=== PATIENT | female | born 1930 | race Two or more races ===

== ENCOUNTER 2016-05-26 15:52 | Emergency (ER) | payer SELFPAY ==
[~2016-05-26] VITALS: Wt 70.0 kg
== END 2016-05-26 20:30 | disposition left against medical advice (07) ==
LOC: E/R 15:52
DX: Z53.21 Procedure and treatment not carried out due to patient leaving prior to being seen by health care provider (principal)

== ENCOUNTER 2016-06-26 16:45 | Inpatient (IN) | payer BC ==
[~2016-06-26] VITALS: Ht 157.5 cm; Wt 72.1 kg
[2016-06-26 19:53] VITALS: BP 181/84; RESP 17
[2016-06-26 20:21] VITALS: PULSE 83
[2016-06-26 20:30] VITALS: Ht 157.5 cm; Wt 72.1 kg
[2016-06-26] MEDS ORDERED: FOLI-49 PO (21:27)
[2016-06-26] MEDS ORDERED: LOSA25TA2 PO (21:27)
[2016-06-26] MEDS ORDERED: ACET500C5 PO (21:27)
[2016-06-26] MEDS ORDERED: PANT40TA3 PO (21:27)
[2016-06-26] MEDS ORDERED: FURO40TA4 PO (21:27)
[2016-06-26] MEDS ORDERED: INSU100C SQ (21:27)
[2016-06-26] MEDS ORDERED: HYDR-906 PO (21:27)
[2016-06-26] MEDS ORDERED: BISM262O PO (21:27)
[2016-06-26] MEDS ORDERED: TEMA15CA PO (21:27)
[2016-06-26] MEDS ORDERED: LANT3I SC (21:27)
[2016-06-26] MEDS ORDERED: CARV6.25 PO (21:27)
[2016-06-26] MEDS ORDERED: MAGN400O4 PO (21:27)
[2016-06-26] MEDS ORDERED: LEVO75TA5 PO (21:27)
[2016-06-26] MEDS ORDERED: SITA100T8 PO (21:27)
[2016-06-26] MEDS ORDERED: ATOR40TA68 PO (21:27)
[2016-06-26] MEDS ORDERED: HYDR-3670 PO (21:27)
[2016-06-26] MEDS ORDERED: MAG355OR15 PO (21:27)
[2016-06-26] MEDS ORDERED: BISM262O23 PO (21:27)
[2016-06-26] MEDS ORDERED: ASPI81TA3 PO (21:27)
[2016-06-26] MEDS ORDERED: IBUP200C11 PO (21:27)
[2016-06-26] MEDS ORDERED: BISMUTH SUBSALICYLATE 120 ML BTL PO PRN (22:30)
[2016-06-26] MEDS ORDERED: AL HYDROX/MG HYDROX/SIMETH 30 ML CUP PO PRN (22:30)
[2016-06-26] MEDS ORDERED: BISMUTH SUBSALICYLATE 240 ML BTL PO PRN (22:30)
[2016-06-26] MEDS ORDERED: HYDROCODONE/APAP (5/325) TAB PO PRN (22:30)
[2016-06-26] MEDS ORDERED: IBUPROFEN 200 MG TAB PO PRN (22:30)
[2016-06-26] MEDS ORDERED: NITROGLYCERIN 0.1 MG/HR PATCH TRANSDERM SCH (22:30)
[2016-06-26] MEDS ORDERED: MAGNESIUM HYDROXIDE 30ML CUP PO PRN (22:30)
[2016-06-26] MEDS ORDERED: ACETAMINOPHEN 500 MG TAB PO PRN (22:30)
[2016-06-26] MEDS ORDERED: ZOLPIDEM 5 MG TAB PO PRN (23:30)
[2016-06-26] MEDS ORDERED: DEXTROSE 50% 50 ML SYRINGE IV PRN ×2 (23:30)
[2016-06-26] MEDS ORDERED: GLUCOSE GEL 15 GRAM TUBE PO PRN ×2 (23:30)
[2016-06-26] MEDS ORDERED: GLUCOSE GEL 15 GRAM TUBE BUCCAL PRN (23:30)
[2016-06-26] MEDS ORDERED: GLUCAGON 1 MG INJ IM PRN (23:30)
[2016-06-26 23:31] LABS: BASOPHILS % 0.8 % (0.0-2.0); EOSINOPHILS # 0.4 10^3/ul (0.0-0.5); EOSINOPHILS % 7.5 % (0.0-7.0); HEMATOCRIT 30.2 % (37.0-47.0); LYMPHOCYTES # 0.8 10^3/ul (0.8-2.9); LYMPHOCYTES % 14.1 % (15.0-51.0); MEAN CORPUSCULAR HEMOGLOBIN 27.9 pg (29.0-33.0); MEAN CORPUSCULAR HGB CONC 33.2 g/dl (32.0-37.0); MEAN CORPUSCULAR VOLUME 84.2 fl (82.0-101.0); MEAN PLATELET VOLUME 7.8 fl (7.4-10.4); MONOCYTE # 0.6 10^3/ul (0.3-0.9); MONOCYTES % 9.5 % (0.0-11.0); NEUTROPHILS % 68.1 % (39.0-77.0); PLATELET COUNT 149 10^3/UL (140-440); RED BLOOD COUNT 3.58 10^6/ul (4.20-5.40); RED CELL DISTRIBUTION WIDTH 15.9 % (11.5-14.5); UNCORRECTED WBC 5.9 10^3/ul (4.8-10.8); WHITE BLOOD COUNT 5.9 10^3/ul (4.8-10.8)
[2016-06-26 23:33] VITALS: BP 175/69; RESP 16
[2016-06-26 23:34] LABS: CONDITION 1; LH ANALYZER COMMENTS 1
[2016-06-26 23:40] LABS: POTASSIUM 5.3 mmol/L (3.5-5.1)
[2016-06-26 23:43] LABS: CALCIUM 8.8 mg/dl (8.4-10.2); CREATININE 2.07 mg/dl (0.44-1.00)
[2016-06-26 23:56] LABS: TROPONIN-I 0.033 ng/ml (0.00-0.12)
[2016-06-27] VITALS (12 sets, daily range): BP systolic 130–157; BP diastolic 59–75; PULSE 59–65; RESP 16–19
[2016-06-27] MEDS: NITROGLYCERIN 2% 1 GM OINT PKT TD SCH ×3 (00:54→21:02)
[2016-06-27] MEDS: ACCUCHECK XX SCH (02:00)
[2016-06-27] MEDS ORDERED: NA POLYST SULFON 15 GM/60 ML BTL PO ONE (06:00)
[2016-06-27] MEDS: PANTOPRAZOLE (EC) 40 MG TAB PO SCH (06:20)
[2016-06-27] MEDS: FUROSEMIDE 40 MG INJ IV SCH (06:20)
[2016-06-27] MEDS: LEVOTHYROXINE 75 MCG TAB PO SCH (06:21)
[2016-06-27] MEDS: FOLIC ACID 1 MG TAB PO SCH (08:48)
[2016-06-27] MEDS: LOSARTAN 25 MG TAB PO SCH (08:48)
[2016-06-27] MEDS: ASPIRIN 325 MG TAB PO SCH (08:49)
[2016-06-27] MEDS: INSULIN ASPART [NOVOLOG] 3 ML PEN SC SCH ×4 (08:57→21:07)
--- NOTE | 2016-06-27 12:18 | CONS ---
Date/Time of Note Date/Time of Note DATE: 06/27/16 TIME: 12:13 Assessment/Plan Assessment/Plan Additional Assessment/Plan Acute decompensated congestive heart failure Atrial fibrillation, rate controlled Chronic kidney disease Hypertension Diabetes Dyslipidemia History of [employer] pacemaker Dementia -Patient with evidence of volume overload and acute decompensated congestive heart failure. Would check checks x-ray, echocardiogram pending, IV diuretic therapy with close monitoring of renal function. Stop ARB given elevated potassium and renal dysfunction. On review of office notes, patient was considered a fall risk and not on anticoagulation. Consultation Date/Type/Reason Admit Date/Time Jun 26, 2016 at 18:58 Type of Consultation: cv Reason for Consultation Congestive heart failure Hx of Present Illness This is an 86-year-old female with past medical history of atrial fibrillation, pacemaker, congestive heart failure, dementia who presented to outside facility with symptoms of progressive worsening shortness of breath. Patient denies chest pain, dizziness or lightheadedness. Because of insurance reasons, she was transferred to our facility for further evaluation and care. Shortness of breath is currently improved but still present. She denies any chest pain, palpitations or dizziness. She denies any abdominal pain. She does complain of lower extremity swelling. History obtained from the patient via screening representative, medical records and office notes. 12 point review of systems was performed with all pertinent positives and negatives mentioned above and all else is negative Past Medical History Atrial fibrillation CKD Medical History: congestive heart failure, high cholesterol, hypertension Past Surgical History Pacemaker Family History Significant Family History: no pertinent family hx Social History Smoking Status: Never smoker Other Social History Lives with family Exam/Review of Systems Vital Signs Vitals Vital Signs Date Time Temp Pulse Resp B/P Pulse Ox O2 Delivery O2 Flow Rate FiO2 06/27/16 12:11 63 06/27/16 11:55 98.3 19 149/68 100 06/27/16 08:00 Nasal Cannula 06/26/16 23:00 3.0 Intake and Output 06/26/16 06/26/16 06/27/16 15:00 23:00 07:00 Intake Total 250 ml Balance 250 ml Exam Follows commands, no apparent distress Constitutional: alert Head: normocephalic Neck: supple Respiratory: other (Coarse breath sounds bilaterally with minimal scattered crackles, more so at the bases, no wheezing) Cardiovascular: irregular rhythm, other (S1-S2 heard) Gastrointestinal: bowel sounds, non-tender, other (No guarding), soft Extremities: edema Results Result Diagram: 06/26/16 2321 06/26/16 2321 Results 24 hrs Laboratory Tests Test 06/26/16 21:52 06/26/16 23:21 06/27/16 05:51 06/27/16 08:05 Bedside Glucose 261 H 247 H Anion Gap 19 H Basophils # 0.0 Basophils % 0.8 Blood Morphology Comment Blood Urea Nitrogen 75 H Calcium Level 8.8 Carbon Dioxide Level 25 Chloride Level 100 Creatinine 2.07 H Eosinophils # 0.4 Eosinophils % 7.5 H Glucose Level 244 H Hematocrit 30.2 L Hemoglobin 10.0 L Lymphocytes # 0.8 Lymphocytes % 14.1 L Mean Corpuscular Hemoglobin 27.9 L Mean Corpuscular Hemoglobin Concent 33.2 Mean Corpuscular Volume 84.2 Mean Platelet Volume 7.8 Monocytes # 0.6 Monocytes % 9.5 Neutrophils # 4.0 Neutrophils % 68.1 Nucleated Red Blood Cells # 0.0 Nucleated Red Blood Cells % 0.0 Platelet Count 149 Potassium Level 5.3 H Red Blood Count 3.58 L Red Cell Distribution Width 15.9 H Sodium Level 139 Troponin I 0.033 0.022 White Blood Count 5.9 Test 06/27/16 11:47 Bedside Glucose 193 Medications Medications Current Medications Acetaminophen (Tylenol Tab) 500 mg Q4H PRN PO PAIN AND OR ELEVATED TEMP; Start 06/26/16 at 22:30 Atorvastatin Calcium (Lipitor) 40 mg QHS PO ; Start 06/27/16 at 21:00 Bismuth Subsalicylate (Pepto-Bismol) 30 ml Q6H PRN PO stomach upset; Start at 22:30 Carvedilol (Coreg) 6.25 mg BID PO Last administered on 06/27/16 08:49; Admin Dose 6.25 MG; Start 06/27/16 at 09:00 Folic Acid (Folic Acid) 1 mg DAILY PO Last administered on 06/27/16 08:48; Admin Dose 1 MG; Start 06/27/16 at 09:00 Acetaminophen/ Hydrocodone Bitart ([place] (5/325)) 5 tab Q6H PRN PO PAIN; Start 06/26/16 at 22:30 Ibuprofen (Motrin) 500 mg Q4H PRN PO PAIN; Start 06/26/16 at 22:30 Insulin Glargine (Lantus) 8 unit QHS SC ; Start 06/27/16 at 21:00 Losartan Potassium (Cozaar) 25 mg DAILY PO Last administered on 06/27/16 08:48 ; Admin Dose 25 MG; Start 06/27/16 at 09:00 Al Hydrox/Mg Hydrox/Simethicone (Mag-Al Plus) 30 ml Q4H PRN PO INDIGESTION, REFLUX, ACIDITY; Start 06/26/16 at 22:30 Magnesium Hydroxide (Milk Of Mag) 30 ml DAILY PRN PO CONSTIPATION; Start at 22:30 Pantoprazole (Protonix Tab) 40 mg DAILY@06 PO Last administered on 06/27/16 06 :20; Admin Dose 40 MG; Start 06/27/16 at 06:00 Zolpidem Tartrate (Ambien) 5 mg HS PRN PO INSOMNIA; Start 06/26/16 at 23:30 Aspirin (Aspirin) 325 mg DAILY PO Last administered on 06/27/16 08:49; Admin Dose 325 MG; Start 06/27/16 at 09:00 Furosemide (Lasix) 40 mg DAILY@06 IV Last administered on 06/27/16 06:20; Admin Dose 40 MG; Start 06/27/16 at 06:00 Diagnostic Test (Pha) (Accucheck) 1 ea 02 XX ; Start 06/27/16 at 02:00 Hydralazine HCl (Apresoline) 25 mg Q8 PO Last administered on 06/27/16 06:20; Admin Dose 25 MG; Start 06/27/16 at 06:00 Miscellaneous Information 1 ea NOTE XX ; Start 06/26/16 at 23:30 Glucose (Glutose) 15 gm Q15M PRN PO DECREASED GLUCOSE; Start 06/26/16 at 23:30 Glucose (Glutose) 22.5 gm Q15M PRN PO DECREASED GLUCOSE; Start 06/26/16 at 23: 30 Dextrose (D50w Syringe) 25 ml Q15M PRN IV DECREASED GLUCOSE; Start 06/26/16 at 23:30 Dextrose (D50w Syringe) 50 ml Q15M PRN IV DECREASED GLUCOSE; Start 06/26/16 at 23:30 Glucagon (Glucagen) 1 mg Q15M PRN IM DECREASED GLUCOSE; Start 06/26/16 at 23:30 Glucose (Glutose) 15 gm Q15M PRN BUCCAL DECREASED GLUCOSE; Start 06/26/16 at 23 :30 Nitroglycerin (Nitroglycerin 2% Oint) 1 inch Q12 TD Last administered on t 08:50; Admin Dose 1 INCH; Start 06/27/16 at 00:00 Procedures Procedures ECG demonstrates atrial fibrillation, PVC, nonspecific STT wave abnormalities Ricky Murguia DO Jun 27, 2016 12:18
--- NOTE | 2016-06-27 12:36 | HP ---
DATE OF ADMISSION: 06/26/2016 HISTORY OF PRESENT ILLNESS: The patient is an elderly female with a history of diabetes, hypertensi on, CKD, a history of CAD, pacemaker placement, who was taken to [facility] for shortness of darin th, transferred here because this is her [facility]. Blood pressure 162/96, heart rate 64, r espirations 24. The patient had received Lasix there. The patient denies any chest pain or palpita tions right now. The patient's urinalysis is negative. WBC 7.38, hematocrit 30.4. The patient's CK-M B is 4.2. Sodium 130, potassium 4.8, CO2 24. The patient's EKG shows an undetermined rhythm. BNP 221. ALLERGY HISTORY: NEGATIVE. FAMILY HISTORY: Negative. SOCIAL HISTORY: Negative. MEDICATION HISTORY: Listed as: 1. Advil. 2. Antacid. 3. Aspirin. 4. Lipitor. 5. Coreg. 6. Cozaar. 7. Folic acid. 8. Humalog. 9. Hydralazine. 10. Hydrocodone. 11. Januvia. 12. Kaopectate. 13. Lantus. 14. Lasix. 15. Levothyroxine. 16. Milk of Magnesia. 17. Protonix. 18. Pepto-Bismol. 19. Restoril. 20. Tylenol. REVIEW OF SYSTEMS: HEENT: Unremarkable. RESPIRATORY: . ABDOMEN: Unremarkable. EXTREMITIES: Unremarkable. CENTRAL NERVOUS SYSTEM: Unremarkable. PHYSICAL EXAMINATION: GENERAL: The patient is awake and alert, not in any acute respiratory distress. VITAL SIGNS: Stable. HEAD: Atraumatic, normocephalic. Pupils are equal, reactive to light. NECK: Supple. No JVD. LUNGS: Clear, with a few rhonchi. CARDIOVASCULAR: S1, S2 normal. ABDOMEN: Soft, nontender. Bowel sounds present. No palpable mass or hepatosplenomegaly. No guard ing or rebound tenderness. EXTREMITIES: There is no cyanosis, clubbing, or edema. CENTRAL NERVOUS SYSTEM: The patient is awake and alert. No focal deficit. SKIN: The patient has a pacemaker in the chest area noted. IMPRESSION: 1. The patient has congestive heart failure. 2. Rule out myocardial infarction. 3. Hypertension. 4. Diabetes mellitus. 5. Anemia. 6. Chronic kidney disease. 7. Atherosclerotic heart disease. 8. Dyslipidemia. PLAN: Continue home medications. The patient will benefit from a cardiology consultation, 2D echo, oxygen, aspirin, nitro paste, blood pressure control, sliding scale. Follow electrolytes. PR will b e ruled out by serial CPKs and enzymes. Dictated By: ARIELA TIERNEY MD BS/NTS Conf#: [id number] DID#: [id number]
--- NOTE | 2016-06-27 13:00 | RADRPT ---
Echocardiogram Report Patient Name: SADIE ARTEAGA Gender: Female Date: 1930 Study Date: 27-Jun-2016 Environmental Management Specialist: Jojo Morales RDCS Location: [id number] Ref. Physician: ARIELA TIERNEY Quality: Technically Difficult Study Procedures: Transthoracic echocardiogram with complete 2D, M-Mode, and doppler examination. Indications: Congestive Heart Failure. 2D/M Mode Doppler Measurement Value Normal Ranges Measurement Value Normal Ranges LVIDd 2D 4.3 3.5 - 5.6 cm CARLOS Vmax 1.1 cm2 LVIDs 2D 2.9 2.1 - 4.1 cm CARLOS VTI 1.1 cm2 LVPWd 2D 1.2 0.6 - 1.1 cm AV Mean Cullen 1.6 m/sec IVSd 2D 1.1 0.6 - 1.1 cm AV Mean PG 12.5 mmHg AoR Diam 2D 2.9 2.0 - 3.7 cm AV Peak Cullen 2.5 m/sec EDV 2D 81.5 cm3 AV Peak PG 25.0 mmHg ESV 2D 24.8 cm3 AV VTI 43.8 cm LA Dimen 2D 5.9 2.3 - 4.0 cm LVOT Mean Cullen 0.6 m/sec LVOT Diam 2.0 cm LVOT Mean PG 1.6 mmHg LVOT Peak Cullen 0.9 m/sec LVOT Peak PG 3.0 mmHg LVOT VTI 18.9 cm MV PHT 63.4 msec MV Peak Cullen 2.8 m/sec MV Peak PG 31.4 mmHg MV Mean Cullen 1.3 m/sec MV Mean PG 9.0 mmHg MV PHT 63.4 msec MV VTI 56.4 cm MVA PHT 3.5 cm2 MVA VTI 1.1 cm TR Peak Cullen 4.4 m/sec TR Peak PG 77.9 mmHg RVSP 93.0 mmHg Findings Left Ventricle: Normal left ventricular systolic function. Normal left ventricular cavity size. Mild concentric left ventricular hypertrophy. Ejection fraction is visually estimated at 65 %. Tissue Doppler/Mitral Doppler indices are indeterminate in this study due to the presence of severe mitral anular calcification. Right Ventricle: Normal right ventricular size. Normal right ventricular systolic function. Left Atrium: There is severe enlargement of left atrium. Right Atrium: There is severe enlargement of right atrium. Mitral Valve: Mitral valve leaflets appear moderately thickened. Severe mitral annular calcification. Mild to moderate mitral valve regurgitation. Severe mitral stenosis. MaxPG 31.40 mmHg. MeanPG 9.00 mmHg. Aortic Valve: Mild aortic stenosis. Aortic valve Max velocity 2.50 m/sec. Max PG 25.00 mmHg. Mean PG 12.50 mmHg. Aortic valve area 1.40 cm2. Aortic cusps appear moderately calcified. Mild aortic valve regurgitation. Tricuspid Valve: Estimated peak PA systolic pressure 93 mmHg. There is moderate to severe tricuspid regurgitation. Pulmonic Valve: Normal pulmonic valve appearance. Pericardium: Normal pericardium with no significant pericardial effusion. Aorta: Normal aortic root. IVC: Dilated IVC without respiratory collapse consistent with elevated right atrial pressure. Conclusions Normal left ventricular systolic function. Normal left ventricular cavity size. Mild concentric left ventricular hypertrophy. Ejection fraction is visually estimated at 65 %. Diastolic function could not be assessed. Severe mitral annular calcification. Severe mitral stenosis with MVA 1.1 cm2 by continuity equation and peak/mean gradients of 31/9 mmHg. Mild to moderate mitral valve regurgitation. Mild aortic stenosis. Peak/mean 25/12 mmHg. Moderate-severe eccentric tricuspid regurgitation. Severe biatrial enlargement. Severe pulmonary HTN with estimated peak PA systolic pressure 93 mmHg based on RA pressure of 15 mmHg. Electronically Signed By: Kun Morelos 27-Jun-2016 12:59:22 -0800 Patient Name: SADIE ARTEAGA Study Date: 27-Jun-2016 [id number]
--- NOTE | 2016-06-27 15:46 | RADRPT ---
PROCEDURE: XR Chest. CLINICAL INDICATION: Congestive heart failure. TECHNIQUE: Single frontal view of the chest was obtained COMPARISON: No. FINDINGS: There is a single chamber cardiac pacemaker noted over the left chest wall with electrode leads proj ecting at the level of the right ventricle. The heart is enlarged. There are vascular calcificatio ns in the aortic arch. The pulmonary vasculature is increased with bilateral perihilar and basilar infiltrates and associated bilateral pleural effusions. There are degenerative osteophytes in the t horacic spine. IMPRESSION: 1. Congestive heart failure with interstitial pulmonary edema, cardiomegaly and bilateral pleural ef fusions. 2. Atherosclerotic vascular disease. 3. Spondylosis of the thoracic spine. 4. Single chamber cardiac pacemaker with electrode lead tip projecting at the level of the right ve ntricle. RPTAT:AAJJ Physician Karime Date Time Electronically viewed and signed by Dorian Islas Physician on 06/27/2016 15:46 SERAFIN/
[2016-06-27] MEDS: ATORVASTATIN 40 MG TAB PO SCH (20:58)
[2016-06-27] MEDS: ALBUTEROL/IPRATROPIUM (NEB) 3 ML AMP HHN PRN (21:03)
[2016-06-27] MEDS: INSULIN GLARGINE [LANtus] 3 ML PEN SC SCH (21:07)
[2016-06-28] VITALS (14 sets, daily range): BP systolic 100–157; BP diastolic 51–70; PULSE 60–65; RESP 16–22
[2016-06-28] MEDS: ACCUCHECK XX SCH (02:15)
[2016-06-28] MEDS: ALBUTEROL/IPRATROPIUM (NEB) 3 ML AMP HHN PRN (04:20)
[2016-06-28] MEDS: FUROSEMIDE 40 MG INJ IV SCH ×2 (05:44→17:47)
[2016-06-28] MEDS: LEVOTHYROXINE 75 MCG TAB PO SCH (05:45)
[2016-06-28] MEDS: PANTOPRAZOLE (EC) 40 MG TAB PO SCH (05:45)
[2016-06-28 07:03] LABS: BASOPHIL # 0.1 10^3/ul (0.0-0.1); BASOPHILS % 1.1 % (0.0-2.0); EOSINOPHILS # 0.7 10^3/ul (0.0-0.5); EOSINOPHILS % 12.6 % (0.0-7.0); HEMATOCRIT 27.1 % (37.0-47.0); HEMOGLOBIN 9.1 g/dl (12.0-16.0); LYMPHOCYTES # 0.8 10^3/ul (0.8-2.9); LYMPHOCYTES % 13.5 % (15.0-51.0); MEAN CORPUSCULAR HEMOGLOBIN 28.1 pg (29.0-33.0); MEAN CORPUSCULAR HGB CONC 33.5 g/dl (32.0-37.0); MEAN CORPUSCULAR VOLUME 83.8 fl (82.0-101.0); MEAN PLATELET VOLUME 8.5 fl (7.4-10.4); MONOCYTE # 0.6 10^3/ul (0.3-0.9); MONOCYTES % 9.5 % (0.0-11.0); NEUTROPHIL # 3.7 10^3/ul (1.6-7.5); NEUTROPHILS % 63.3 % (39.0-77.0); PLATELET COUNT 133 10^3/UL (140-440); RED BLOOD COUNT 3.24 10^6/ul (4.20-5.40); RED CELL DISTRIBUTION WIDTH 15.8 % (11.5-14.5); UNCORRECTED WBC 5.8 10^3/ul (4.8-10.8); WHITE BLOOD COUNT 5.8 10^3/ul (4.8-10.8)
[2016-06-28 07:06] LABS: CONDITION 1; LH ANALYZER COMMENTS 1
[2016-06-28 07:28] LABS: ALBUMIN 3.5 g/dl (3.3-4.9); ALBUMIN/GLOBULIN RATIO 1.2; BILIRUBIN,INDIRECT 0.1 mg/dl (0-1.1); BILIRUBIN,TOTAL 0.1 mg/dl (0.2-1.3); CREATININE 2.21 mg/dl (0.44-1.00); POTASSIUM 4.3 mmol/L (3.5-5.1); TOTAL PROTEIN 6.4 g/dl (6.1-8.1)
[2016-06-28 07:29] LABS: CALCIUM 8.6 mg/dl (8.4-10.2)
[2016-06-28] MEDS: LOSARTAN 25 MG TAB PO SCH (08:33)
[2016-06-28] MEDS: NITROGLYCERIN 2% 1 GM OINT PKT TD SCH ×2 (08:33→20:40)
[2016-06-28] MEDS: ASPIRIN 325 MG TAB PO SCH (08:33)
[2016-06-28] MEDS: FOLIC ACID 1 MG TAB PO SCH (08:33)
[2016-06-28] MEDS: INSULIN ASPART [NOVOLOG] 3 ML PEN SC SCH ×4 (08:42→21:11)
--- NOTE | 2016-06-28 12:30 | PN ---
Date/Time of Note Date/Time of Note DATE: 06/28/16 TIME: 12:29 Assessment/Plan VTE Prophylaxis VTE Prophylaxis Intervention: other Lines/Catheters IV [facility] Urinary Cath still in place: No Assessment/Plan Chief Complaint/Hosp Course IMPRESSION: 1. The patient has congestive heart failure. 2. Rule out myocardial infarction. 3. Hypertension. 4. Diabetes mellitus. 5. Anemia. 6. Chronic kidney disease. 7. Atherosclerotic heart disease. 8. Dyslipidemia. plan ct chest lasix Problems: Subjective 24 Hr Interval Summary Respiratory: shortness of breath (+) Exam/Review of Systems Vital Signs Vitals Vital Signs Date Time Temp Pulse Resp B/P Pulse Ox O2 Delivery O2 Flow Rate FiO2 06/28/16 11:45 97.3 60 18 100/51 94 06/28/16 09:45 Nasal Cannula 3.0 06/28/16 04:21 32 Intake and Output 06/27/16 06/27/16 06/28/16 15:00 23:00 07:00 Intake Total 800 ml 400 ml Balance 800 ml 400 ml Exam Neck: supple Respiratory: diminished breath sounds Cardiovascular: regular rate and rhythm Gastrointestinal: soft Extremities: edema (+) Results Result Diagram: 06/28/16 0610 06/28/16 0610 Results 24 hrs Laboratory Tests Test 06/27/16 13:40 06/27/16 17:07 06/27/16 20:04 06/28/16 02:14 Troponin I 0.036 Bedside Glucose 131 215 205 Test 06/28/16 06:10 06/28/16 07:29 06/28/16 11:41 Alanine Aminotransferase (ALT/SGPT) 23 Albumin 3.5 Albumin/Globulin Ratio 1.20 Alkaline Phosphatase 79 Anion Gap 14 Aspartate Amino Transf (AST/SGOT) 28 Basophils # 0.1 Basophils % 1.1 Blood Morphology Comment Blood Urea Nitrogen 79 H Calcium Level 8.6 Carbon Dioxide Level 28 Chloride Level 103 Creatinine 2.21 H Direct Bilirubin 0.00 Eosinophils # 0.7 H Eosinophils % 12.6 H Globulin 2.90 Glucose Level 165 Hematocrit 27.1 L Hemoglobin 9.1 L Indirect Bilirubin 0.1 Lymphocytes # 0.8 Lymphocytes % 13.5 L Mean Corpuscular Hemoglobin 28.1 L Mean Corpuscular Hemoglobin Concent 33.5 Mean Corpuscular Volume 83.8 Mean Platelet Volume 8.5 Monocytes # 0.6 Monocytes % 9.5 Neutrophils # 3.7 Neutrophils % 63.3 Nucleated Red Blood Cells # 0.0 Nucleated Red Blood Cells % 0.0 Platelet Count 133 L Potassium Level 4.3 Red Blood Count 3.24 L Red Cell Distribution Width 15.8 H Sodium Level 141 Total Bilirubin 0.1 L Total Protein 6.4 White Blood Count 5.8 Bedside Glucose 174 178 Medications Medications Current Medications Acetaminophen (Tylenol Tab) 500 mg Q4H PRN PO PAIN AND OR ELEVATED TEMP; Start 06/26/16 at 22:30 Atorvastatin Calcium (Lipitor) 40 mg QHS PO Last administered on 06/27/16 20: 58; Admin Dose 40 MG; Start 06/27/16 at 21:00 Bismuth Subsalicylate (Pepto-Bismol) 30 ml Q6H PRN PO stomach upset; Start at 22:30 Carvedilol (Coreg) 6.25 mg BID PO Last administered on 06/28/16 08:33; Admin Dose 6.25 MG; Start 06/27/16 at 09:00 Folic Acid (Folic Acid) 1 mg DAILY PO Last administered on 06/28/16 08:33; Admin Dose 1 MG; Start 06/27/16 at 09:00 Acetaminophen/ Hydrocodone Bitart ([place] (5/325)) 5 tab Q6H PRN PO PAIN; Start 06/26/16 at 22:30 Ibuprofen (Motrin) 500 mg Q4H PRN PO PAIN; Start 06/26/16 at 22:30 Insulin Glargine (Lantus) 8 unit QHS SC Last administered on 06/27/16 21:07; Admin Dose 8 UNIT; Start 06/27/16 at 21:00 Losartan Potassium (Cozaar) 25 mg DAILY PO Last administered on 06/28/16 08:33 ; Admin Dose 25 MG; Start 06/27/16 at 09:00 Al Hydrox/Mg Hydrox/Simethicone (Mag-Al Plus) 30 ml Q4H PRN PO INDIGESTION, REFLUX, ACIDITY; Start 06/26/16 at 22:30 Magnesium Hydroxide (Milk Of Mag) 30 ml DAILY PRN PO CONSTIPATION; Start at 22:30 Pantoprazole (Protonix Tab) 40 mg DAILY@06 PO Last administered on 06/28/16 05 :45; Admin Dose 40 MG; Start 06/27/16 at 06:00 Zolpidem Tartrate (Ambien) 5 mg HS PRN PO INSOMNIA; Start 06/26/16 at 23:30 Aspirin (Aspirin) 325 mg DAILY PO Last administered on 06/28/16 08:33; Admin Dose 325 MG; Start 06/27/16 at 09:00 Furosemide (Lasix) 40 mg DAILY@06 IV Last administered on 06/28/16 05:44; Admin Dose 40 MG; Start 06/27/16 at 06:00 Diagnostic Test (Pha) (Accucheck) 1 ea 02 XX Last administered on 06/28/16 02: 15; Admin Dose 1 EA; Start 06/27/16 at 02:00 Hydralazine HCl (Apresoline) 25 mg Q8 PO Last administered on 06/28/16 05:45; Admin Dose 25 MG; Start 06/27/16 at 06:00 Miscellaneous Information 1 ea NOTE XX ; Start 06/26/16 at 23:30 Glucose (Glutose) 15 gm Q15M PRN PO DECREASED GLUCOSE; Start 06/26/16 at 23:30 Glucose (Glutose) 22.5 gm Q15M PRN PO DECREASED GLUCOSE; Start 06/26/16 at 23: 30 Dextrose (D50w Syringe) 25 ml Q15M PRN IV DECREASED GLUCOSE; Start 06/26/16 at 23:30 Dextrose (D50w Syringe) 50 ml Q15M PRN IV DECREASED GLUCOSE; Start 06/26/16 at 23:30 Glucagon (Glucagen) 1 mg Q15M PRN IM DECREASED GLUCOSE; Start 06/26/16 at 23:30 Glucose (Glutose) 15 gm Q15M PRN BUCCAL DECREASED GLUCOSE; Start 06/26/16 at 23 :30 Nitroglycerin (Nitroglycerin 2% Oint) 1 inch Q12 TD Last administered on 08:33; Admin Dose 1 INCH; Start 06/27/16 at 00:00 ARIELA TIERNEY MD Jun 28, 2016 12:30
--- NOTE | 2016-06-28 19:16 | RADRPT ---
PROCEDURE: CT Chest without contrast. CLINICAL INDICATION: Shortness of breath. TECHNIQUE: Helical axial sections were obtained through the chest without intravenous contrast enh ancement. Coronal and sagittal reformatted images were obtained from the axial source images. Total exam DLP is 509.41 mGy-cm. CTDIvol is 14.04 mGy. One or more of the following dose reduction hilario hniques were used: Automated exposure control, adjustment of the mA and/or kV according to patient s ize, use of iterative reconstruction technique. COMPARISON: None FINDINGS: There is bilateral interstitial disease consistent with pulmonary edema. Atelectasis is present at the lung bases posteriorly. The lungs are otherwise clear with no other airspace or interstitial di sease. There is no pulmonary nodule or mass lesion. There is no mediastinal or hilar lymphadenopathy or mass. There is no axillary, supraclavicular, or internal mammary lymphadenopathy. The thoracic aorta is not dilated. There is calcification in the aorta consistent with atherosclero sis. The heart is enlarged. There is a left-sided permanent pacemaker. There is coronary artery calcifi cation. There are moderate bilateral pleural effusions with left larger than right. There is a very small p ericardial effusion. Images through the upper abdomen demonstrate normal visualized portions of the liver, spleen, and ad renals. There are mild degenerative changes of the spine. There is no fracture or lytic lesion. IMPRESSION: 1. Pulmonary edema. 2. Atelectasis at the lung bases posteriorly. 3. Atherosclerosis. 4. Cardiomegaly. 5. Left-sided permanent pacemaker. 6. Coronary artery calcification. 7. Moderate bilateral pleural effusions with left larger than right. 8. Very small pericardial effusion. 9. Mild degenerative changes of the spine. RPTAT: QQ .Ethan Bowles MD, Date Time Electronically viewed and signed by .Ethan Bowles MD, on 06/28/2016 19:16 .R/
[2016-06-28] MEDS: ATORVASTATIN 40 MG TAB PO SCH (20:42)
[2016-06-28] MEDS: INSULIN GLARGINE [LANtus] 3 ML PEN SC SCH (21:11)
[2016-06-29] VITALS (11 sets, daily range): BP systolic 129–141; BP diastolic 59–87; PULSE 60–70; RESP 16–18
[2016-06-29] MEDS: ACCUCHECK XX SCH (02:00)
--- NOTE | 2016-06-29 04:23 | PN ---
DATE: 06/28/2016 CARDIOLOGY FOLLOWUP SUBJECTIVE: Discussed with the staff. Rhythm strip was reviewed. No new cardiac event. The patie nt remains in atrial fibrillation with demand ventricular pacemaker. MEDICATIONS: Reviewed which include 1. Lasix 40 IV b.i.d. 2. Lipitor. 3. Insulin. 4. Coreg. 5. Losartan. 6. Aspirin. 7. Levothyroxine. OBJECTIVE: VITAL SIGNS: Temperature 97.6, heart rate of 62, blood pressure 120/60, respiratory rate of 20, sat urating 98%. HEENT: Normocephalic, atraumatic. Pupils are equal. CARDIOVASCULAR: Irregularly irregular. Systolic ejection murmur. PULMONARY: With mild rhonchi. GASTROINTESTINAL: Soft, nontender. EXTREMITIES: With positive edema. NEUROLOGIC: Awake, ____. DIAGNOSTIC DATA: Chest x-ray showed congestive heart failure. Echocardiogram read by Dr. Brittny spicer shows ejection fraction of 65%, severe mitral stenosis with valve area of 1.1, peak gradient of 31 , mean gradient of 9. Mild aortic stenosis, moderate to severe eccentric tricuspid insufficiency wi th biatrial enlargement. PA pressure of 93 mmHg. I's and O's show 1200 in, and output has not been recorded. LABORATORY: WBC of 5.9, hemoglobin 9.1, platelets of 133. Sodium 141, potassium 4.3, BUN of 72, cr eatinine 2.21, glucose 165. Albumin is 3.5. ASSESSMENT AND PLAN: 1. Congestive heart failure secondary to valvular heart disease. 2. Mitral stenosis. 3. Atrial fibrillation. 4. Renal insufficiency. 5. Diabetes. 6. Sick sinus syndrome. 7. Permanent pacemaker. 8. Severe dementia. RECOMMENDATIONS: I will stop the ARB given her renal failure. Diuresis as tolerated to be continue d. Beta roz as tolerated to be continued. Diuresis will be continued. We will check guaiac st ool and will consider anticoagulation if there is no evidence of bleeding despite her anemia. Dictated By: LEIGHA MANCINI MD AV/AMNA Conf#: [id number] DID#: [id number] CC: ADRIANO AKBAR DO; ARIELA TIERNEY MD;*EndCC*
[2016-06-29] MEDS: LEVOTHYROXINE 75 MCG TAB PO SCH (05:07)
[2016-06-29] MEDS: FUROSEMIDE 40 MG INJ IV SCH ×2 (05:07→17:25)
[2016-06-29] MEDS: PANTOPRAZOLE (EC) 40 MG TAB PO SCH (05:07)
[2016-06-29 06:55] LABS: BASOPHILS % 0.5 % (0.0-2.0); EOSINOPHILS # 0.7 10^3/ul (0.0-0.5); EOSINOPHILS % 10.5 % (0.0-7.0); HEMATOCRIT 28.5 % (37.0-47.0); HEMOGLOBIN 9.5 g/dl (12.0-16.0); LYMPHOCYTES # 0.9 10^3/ul (0.8-2.9); LYMPHOCYTES % 13.6 % (15.0-51.0); MEAN CORPUSCULAR HGB CONC 33.4 g/dl (32.0-37.0); MEAN CORPUSCULAR VOLUME 83.8 fl (82.0-101.0); MEAN PLATELET VOLUME 8.3 fl (7.4-10.4); MONOCYTE # 0.7 10^3/ul (0.3-0.9); MONOCYTES % 9.7 % (0.0-11.0); NEUTROPHIL # 4.4 10^3/ul (1.6-7.5); NEUTROPHILS % 65.7 % (39.0-77.0); PLATELET COUNT 141 10^3/UL (140-440); RED CELL DISTRIBUTION WIDTH 15.5 % (11.5-14.5); UNCORRECTED WBC 6.8 10^3/ul (4.8-10.8); WHITE BLOOD COUNT 6.8 10^3/ul (4.8-10.8)
[2016-06-29 07:06] LABS: ALBUMIN 3.6 g/dl (3.3-4.9)
[2016-06-29 07:07] LABS: POTASSIUM 4.1 mmol/L (3.5-5.1)
[2016-06-29 07:08] LABS: CREATININE 2.49 mg/dl (0.44-1.00)
[2016-06-29 07:09] LABS: ALBUMIN/GLOBULIN RATIO 1.16; BILIRUBIN,INDIRECT 0.2 mg/dl (0-1.1); BILIRUBIN,TOTAL 0.2 mg/dl (0.2-1.3); CALCIUM 8.5 mg/dl (8.4-10.2); TOTAL PROTEIN 6.7 g/dl (6.1-8.1)
[2016-06-29 07:17] LABS: CONDITION 1; LH ANALYZER COMMENTS 1
[2016-06-29 07:34] LABS: THYROID STIMULATING HORMONE 3.79 MIU/L (0.465-4.680)
[2016-06-29 07:57] LABS: CK-MB 1.75 ng/ml (0.0-2.4)
[2016-06-29 08:01] LABS: TROPONIN-I 0.037 ng/ml (0.00-0.12)
[2016-06-29] MEDS: FOLIC ACID 1 MG TAB PO SCH (08:13)
[2016-06-29] MEDS: ASPIRIN 325 MG TAB PO SCH (08:13)
[2016-06-29] MEDS: NITROGLYCERIN 2% 1 GM OINT PKT TD SCH ×2 (08:13→21:18)
[2016-06-29] MEDS: INSULIN ASPART [NOVOLOG] 3 ML PEN SC SCH ×4 (08:23→21:16)
[2016-06-29] MEDS ORDERED: ONDANSETRON 4 MG INJ IV PRN (10:40)
--- NOTE | 2016-06-29 16:40 | PN ---
Date/Time of Note Date/Time of Note DATE: 06/29/16 TIME: 16:39 Assessment/Plan VTE Prophylaxis VTE Prophylaxis Intervention: other Lines/Catheters IV C[facility]ter Type (from [facility]): [facility] Urinary Cath still in place: No Assessment/Plan Chief Complaint/Hosp Course IMPRESSION: 1. The patient has congestive heart failure. 2. Rule out myocardial infarction. 3. Hypertension. 4. Diabetes mellitus. 5. Anemia. 6. Chronic kidney disease. 7. Atherosclerotic heart disease. 8. Dyslipidemia. 9 pleural effusion plan thoracentesis lasix Problems: Subjective 24 Hr Interval Summary Subjective hx not possible: other Exam/Review of Systems Vital Signs Vitals Vital Signs Date Time Temp Pulse Resp B/P Pulse Ox O2 Delivery O2 Flow Rate FiO2 06/29/16 15:07 97.9 78 16 131/59 99 06/29/16 07:58 Nasal Cannula 3.0 06/28/16 15:11 28 Intake and Output 06/28/16 06/28/16 06/29/16 15:00 23:00 07:00 Intake Total 720 ml 400 ml Output Total 600 ml Balance 120 ml 400 ml Exam Respiratory: diminished breath sounds Cardiovascular: regular rate and rhythm Gastrointestinal: soft Musculoskeletal: nl extremities to inspection Results Result Diagram: 06/29/16 0524 06/29/16 0524 Results 24 hrs Laboratory Tests Test 06/28/16 17:46 06/28/16 20:26 06/29/16 04:41 06/29/16 05:20 Bedside Glucose 290 H 223 H 189 Free Thyroxine 1.55 Test 06/29/16 05:24 06/29/16 07:45 06/29/16 07:46 06/29/16 11:47 Alanine Aminotransferase (ALT/SGPT) 23 Albumin 3.6 Albumin/Globulin Ratio 1.16 Alkaline Phosphatase 78 Anion Gap 18 H Aspartate Amino Transf (AST/SGOT) 30 B-Type Natriuretic Peptide 4320 H Basophils # 0.0 Basophils % 0.5 Blood Morphology Comment Blood Urea Nitrogen 80 H Calcium Level 8.5 Carbon Dioxide Level 27 Chloride Level 102 Creatine Kinase 69 Creatine Kinase Index 2.5 Creatinine 2.49 H Creatinine Kinase MB (Mass) 1.75 Digoxin Level < 0.4 L Direct Bilirubin 0.00 Eosinophils # 0.7 H Eosinophils % 10.5 H Globulin 3.10 Glucose Level 191 Hematocrit 28.5 L Hemoglobin 9.5 L Indirect Bilirubin 0.2 Lymphocytes # 0.9 Lymphocytes % 13.6 L Magnesium Level 2.0 Mean Corpuscular Hemoglobin 28.0 L Mean Corpuscular Hemoglobin Concent 33.4 Mean Corpuscular Volume 83.8 Mean Platelet Volume 8.3 Monocytes # 0.7 Monocytes % 9.7 Neutrophils # 4.4 Neutrophils % 65.7 Nucleated Red Blood Cells # 0.0 Nucleated Red Blood Cells % 0.0 Platelet Count 141 Potassium Level 4.1 Red Blood Count 3.40 L Red Cell Distribution Width 15.5 H Sodium Level 143 Thyroid Stimulating Hormone (TSH) 3.790 Total Bilirubin 0.2 Total Protein 6.7 Troponin I 0.037 White Blood Count 6.8 Stool Occult Blood NEGATIVE Bedside Glucose 223 H 260 H Medications Medications Current Medications Acetaminophen (Tylenol Tab) 500 mg Q4H PRN PO PAIN AND OR ELEVATED TEMP; Start 06/26/16 at 22:30 Atorvastatin Calcium (Lipitor) 40 mg QHS PO Last administered on 06/28/16 20: 42; Admin Dose 40 MG; Start 06/27/16 at 21:00 Bismuth Subsalicylate (Pepto-Bismol) 30 ml Q6H PRN PO stomach upset; Start at 22:30 Carvedilol (Coreg) 6.25 mg BID PO Last administered on 06/29/16 08:13; Admin Dose 6.25 MG; Start 06/27/16 at 09:00 Folic Acid (Folic Acid) 1 mg DAILY PO Last administered on 06/29/16 08:13; Admin Dose 1 MG; Start 06/27/16 at 09:00 Acetaminophen/ Hydrocodone Bitart ([place] (5/325)) 5 tab Q6H PRN PO PAIN; Start 06/26/16 at 22:30 Ibuprofen (Motrin) 500 mg Q4H PRN PO PAIN; Start 06/26/16 at 22:30 Insulin Glargine (Lantus) 8 unit QHS SC Last administered on 06/28/16 21:11; Admin Dose 8 UNIT; Start 06/27/16 at 21:00 Al Hydrox/Mg Hydrox/Simethicone (Mag-Al Plus) 30 ml Q4H PRN PO INDIGESTION, REFLUX, ACIDITY; Start 06/26/16 at 22:30 Magnesium Hydroxide (Milk Of Mag) 30 ml DAILY PRN PO CONSTIPATION; Start at 22:30 Pantoprazole (Protonix Tab) 40 mg DAILY@06 PO Last administered on 06/29/16 05 :07; Admin Dose 40 MG; Start 06/27/16 at 06:00 Zolpidem Tartrate (Ambien) 5 mg HS PRN PO INSOMNIA; Start 06/26/16 at 23:30 Aspirin (Aspirin) 325 mg DAILY PO Last administered on 06/29/16 08:13; Admin Dose 325 MG; Start 06/27/16 at 09:00 Diagnostic Test (Pha) (Accucheck) 1 ea 02 XX Last administered on 06/29/16 02: 00; Admin Dose 1 EA; Start 06/27/16 at 02:00 Hydralazine HCl (Apresoline) 25 mg Q8 PO Last administered on 06/29/16 14:03; Admin Dose 25 MG; Start 06/27/16 at 06:00 Miscellaneous Information 1 ea NOTE XX ; Start 06/26/16 at 23:30 Glucose (Glutose) 15 gm Q15M PRN PO DECREASED GLUCOSE; Start 06/26/16 at 23:30 Glucose (Glutose) 22.5 gm Q15M PRN PO DECREASED GLUCOSE; Start 06/26/16 at 23: 30 Dextrose (D50w Syringe) 25 ml Q15M PRN IV DECREASED GLUCOSE; Start 06/26/16 at 23:30 Dextrose (D50w Syringe) 50 ml Q15M PRN IV DECREASED GLUCOSE; Start 06/26/16 at 23:30 Glucagon (Glucagen) 1 mg Q15M PRN IM DECREASED GLUCOSE; Start 06/26/16 at 23:30 Glucose (Glutose) 15 gm Q15M PRN BUCCAL DECREASED GLUCOSE; Start 06/26/16 at 23 :30 Nitroglycerin (Nitroglycerin 2% Oint) 1 inch Q12 TD Last administered on 08:13; Admin Dose 1 INCH; Start 06/27/16 at 00:00 Ondansetron HCl (Zofran Inj) 4 mg Q6H PRN IV NAUSEA AND/OR VOMITING; Start at 10:40 ARIELA TIERNEY MD Jun 29, 2016 16:40
[2016-06-29 17:51] LABS: INR 1.08; PT RATIO 1.1
[2016-06-29 18:17] LABS: AADO2 Arterial 66.5 mmHg (7.0-24.0); Arterial Base Excess 1.5 mmol/L (-3.0-3); Arterial COHb 0.2 % (0.0-3.0); Arterial Fraction of Oxyhgb 54.8 % (93.0-99.0); Arterial HCO3 26.8 mmol/L (22.0-26.0); Arterial MetHb 0.4 % (0.0-1.5); Arterial Total Hemglobin 9.9 g/dl (12.0-18.0); MODE ROOM AIR
--- NOTE | 2016-06-29 18:34 | PN ---
DATE: 06/29/2016 CARDIOLOGY FOLLOWUP SUBJECTIVE: Discussed with the staff, discussed with the patient's son. History was reviewed. The patient's rhythm strip was reviewed. The patient remains in atrial fibrillation. Heart rate has r emained stable. He is on demand ventricular pacemaker. The patient still has shortness of breath. MEDICATIONS: Reviewed as per medical reconciliation, personally reviewed. PHYSICAL EXAMINATION: VITAL SIGNS: Heart rate of 60, afebrile, blood pressure 130/62, respiration rate of 18. HEENT: Normocephalic, atraumatic obese female. Pupils are equal. CARDIOVASCULAR: Irregularly irregular. Systolic and diastolic murmur. PULMONARY: Rhonchi at the base. GASTROINTESTINAL: Obese, soft. EXTREMITIES: Positive edema. NEUROLOGIC: Awake, responds appropriately. PSYCHIATRIC: Appears to be calm and pleasant. LABORATORY: Reviewed. ASSESSMENT AND PLAN: 1. Congestive heart failure stenosis. 2. History of GI bleed, according to the son, has been taken off of anticoagulation for the past fe w months. 3. Renal failure on dialysis. 4. Atrial fibrillation. RECOMMENDATIONS: Congestive heart failure. Fluid management with dialysis. Diuresis will be christiano nued as tolerated. Continue to monitor on telemetry. Dr. Murguia and associate will follow the solsi ent tomorrow. Dictated By: LEIGHA MANCINI MD AV/NTS Conf#: [id number] DID#: [id number] CC: ARIELA TIERNEY MD;*End*
[2016-06-29] MEDS: ATORVASTATIN 40 MG TAB PO SCH (21:12)
[2016-06-29] MEDS: INSULIN GLARGINE [LANtus] 3 ML PEN SC SCH (21:14)
[2016-06-29 21:29] LABS: AADO2 Arterial 38.9 mmHg (7.0-24.0); Allen Test ACCEPTAB; Arterial Base Excess 1.6 mmol/L (-3.0-3); Arterial COHb 0.3 % (0.0-3.0); Arterial Fraction of Oxyhgb 97.1 % (93.0-99.0); Arterial HCO3 27.7 mmol/L (22.0-26.0); Arterial MetHb 0.2 % (0.0-1.5); MODE NASAL CANNULA
--- NOTE | 2016-06-29 21:46 | RADRPT ---
Vent Rate: 65 bpm RR Interval: 0 msec WV Interval: 0 msec QRS Duration: 88 msec QT Interval: 436 msec QTC Interval: 453 msec P-R-T [place]: 0 - 18 - 66 degrees Demand pacemaker, interpretation is based on intrinsic rhythm Atrial fibrillation with premature ventricular or aberrantly conducted complexes Anteroseptal infarct , age undetermined Abnormal ECG Electronically Signed By: Ricky Murguia [id number]
[2016-06-30] VITALS (14 sets, daily range): BP systolic 114–145; BP diastolic 57–63; PULSE 59–70; RESP 16–20
[2016-06-30] MEDS: ACCUCHECK XX SCH (02:23)
[2016-06-30] MEDS: PANTOPRAZOLE (EC) 40 MG TAB PO SCH (05:52)
[2016-06-30] MEDS: FUROSEMIDE 40 MG INJ IV SCH ×2 (05:53→17:46)
[2016-06-30] MEDS: LEVOTHYROXINE 75 MCG TAB PO SCH (06:42)
[2016-06-30 06:48] LABS: POTASSIUM 4.3 mmol/L (3.5-5.1)
[2016-06-30 06:51] LABS: CREATININE 2.3 mg/dl (0.44-1.00)
[2016-06-30 06:52] LABS: CALCIUM 8.5 mg/dl (8.4-10.2)
[2016-06-30 06:55] LABS: BASOPHIL # 0.1 10^3/ul (0.0-0.1); BASOPHILS % 0.7 % (0.0-2.0); EOSINOPHILS # 0.5 10^3/ul (0.0-0.5); EOSINOPHILS % 6.9 % (0.0-7.0); HEMOGLOBIN 9.7 g/dl (12.0-16.0); LYMPHOCYTES % 14.8 % (15.0-51.0); MEAN CORPUSCULAR HEMOGLOBIN 28.1 pg (29.0-33.0); MEAN CORPUSCULAR HGB CONC 33.5 g/dl (32.0-37.0); MEAN CORPUSCULAR VOLUME 83.9 fl (82.0-101.0); MEAN PLATELET VOLUME 8.2 fl (7.4-10.4); MONOCYTE # 0.6 10^3/ul (0.3-0.9); MONOCYTES % 9.2 % (0.0-11.0); NEUTROPHIL # 4.8 10^3/ul (1.6-7.5); NEUTROPHILS % 68.4 % (39.0-77.0); PLATELET COUNT 137 10^3/UL (140-440); RED BLOOD COUNT 3.46 10^6/ul (4.20-5.40); RED CELL DISTRIBUTION WIDTH 15.4 % (11.5-14.5)
[2016-06-30 06:58] LABS: CONDITION 1; LH ANALYZER COMMENTS 1
[2016-06-30] MEDS: ASPIRIN 325 MG TAB PO SCH (08:14)
[2016-06-30] MEDS: FOLIC ACID 1 MG TAB PO SCH (08:15)
[2016-06-30] MEDS: NITROGLYCERIN 2% 1 GM OINT PKT TD SCH ×2 (08:15→21:02)
[2016-06-30] MEDS: INSULIN ASPART [NOVOLOG] 3 ML PEN SC SCH ×4 (08:19→21:06)
[2016-06-30] MEDS ORDERED: LIDOCAINE 1% (MPF) 5 ML VIAL ONE (10:38)
--- NOTE | 2016-06-30 11:14 | RADRPT ---
PROCEDURE: XR Chest. CLINICAL INDICATION: Status post thoracentesis. TECHNIQUE: Single frontal view of the chest was obtained COMPARISON: Chest x-ray 06/27/2016 03:34 p.m. FINDINGS: Heart is enlarged with bilateral interstitial pulmonary edema and small pleural effusions. There is a single chamber cardiac pacemaker with electrode tip projecting at the level of the right ventricl e. There are vascular calcifications in the aortic arch. There are degenerative osteophytes in the thoracic spine. IMPRESSION: 1. Congestive heart failure with interstitial pulmonary edema and bilateral pleural effusions. The pleural effusions and pulmonary edema appears slightly improved compared to the earlier study. 2. Single chamber cardiac pacemaker implanted over the left chest wall. 3. Atherosclerotic vascular disease. 4. Spondylosis of the thoracic spine. RPTAT:AAJJ Physician Karime Date Time Electronically viewed and signed by Dorian Islas Physician on 06/30/2016 11:14 SERAFIN/
--- NOTE | 2016-06-30 11:17 | CONS ---
Date/Time of Note Date/Time of Note DATE: 06/30/16 TIME: 11:11 Assessment/Plan Assessment/Plan Additional Assessment/Plan Chest x-ray and CT scan of chest were reviewed without contrast from the of this month. The findings are consistent with pulmonary edema. Assessment and recommendations; 1 patient admitted with shortness of breath due to CHF. Due to underlying cardiomyopathy. 2. History of hypertension possibly some element of diastolic dysfunction. 3. Diabetes. 4. Hypertension. 5. Coronary artery disease. 6. CKD. Continue current treatment. Patient responding well to the current treatment regimen. Consultation Date/Type/Reason Admit Date/Time Jun 26, 2016 at 18:58 Date of Consultation: Jun 30, 2016 Type of Consultation: Pulmonary Reason for Consultation Pulmonary consultation obtained for evaluation of hypoxemic respiratory failure. History of presenting illness; patient is an 86-year-old white lady who was admitted 2 days ago transferred from another hospital where she presented with a few days history of increasing shortness of breath, because of some insurance issues, patient was transferred over to [facility] for further care. Upon further workup, the patient had a chest x-ray done which is showing ankur congestive heart failure with significant cardiomegaly. Patient has been started on intravenous Lasix with marked improvement in symptoms. She denies any chest pain, shortness of breath has improved. Denies any cough, fever, chills, sputum production. Denies any abdominal pain, nausea, vomiting. Past medical history; next 1. Hypertension next 2. Diabetes . 3. Arthritis. 4. Hyperlipidemia. 5. Coronary artery disease. 6. Pacemaker implantation 7. Chronic renal disease Medications; were reviewed. Allergies are none. Social history; patient never smoked, no history of alcohol or drug abuse. Family history; various family members of hypertension diabetes. 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 Review of systems; denies any headache, seizures. Denies any visual changes. Any sinus symptoms. Denies any sore throat. Dysphagia. Denies any angina, chest pain. Denies any wheezing. Shortness of breath has significantly improved. Denies any cough, hemoptysis. Denies any sputum production. Denies any wheezing, denies any abdominal pain, nausea or vomiting. Denies any melena , hematochezia. Denies any edema. Does complain of chronic orthopnea. Denies any weight change. Respiratory: shortness of breath (+) Past Medical History Medical History: congestive heart failure, high cholesterol, hypertension Social History Smoking Status: Never smoker Exam/Review of Systems Vital Signs Vitals Vital Signs Date Time Temp Pulse Resp B/P Pulse Ox O2 Delivery O2 Flow Rate FiO2 06/30/16 09:50 Nasal Cannula 3.0 06/30/16 09:30 66 06/30/16 07:59 97.7 20 136/59 100 06/28/16 15:11 28 Intake and Output 06/29/16 06/29/16 06/30/16 15:00 23:00 07:00 Intake Total 520 ml 200 ml Balance 520 ml 200 ml Exam H EENT examination; supple neck, positive JVD. No lymphadenopathy. Patient is edentulous and wears dentures. Pupils are small bilaterally. Extraocular movements are intact. No neck masses, no thyromegaly no neck bruits. Chest examination; diminished breath sounds in lung bases bilaterally without any added sounds. S1-S2 audible, no murmurs. Regular rhythm. There is a pacemaker in the left chest wall. Next Abdomen examination; nontender, nondistended. No organomegaly. Bowel sounds audible. Extremity examination; no peripheral edema. Pulses 2+ bilaterally. There is no clubbing. [employer] examination; cranial nerves are grossly intact there is no motor deficit. Results Result Diagram: 06/30/1617 06/30/1617 Results 24 hrs Laboratory Tests Test 06/29/16 11:47 06/29/16 17:00 06/29/16 17:23 06/29/16 17:36 Bedside Glucose 260 H 303 H Arterial Blood HCO3 26.8 H Arterial Blood Base Excess 1.5 Arterial Blood Oxygen Saturation 55.1 L Ghulam Test N/A Arterial Blood Gas Puncture Site Right Brachial Arterial Blood Carboxyhemoglobin 0.2 Arterial Blood Date Drawn 06/29/2016 6:03:37 PM Arterial Blood Methemoglobin 0.4 Arterial Blood pCO2 (Temp correct) 45.3 H Arterial Blood pH (Temp corrected) 7.390 Arterial Blood pO2 (Temp corrected) 29.0 *L Blood Gas A-a O2 Differential 66.5 H Blood Gas Critical Value Read Back donavon Omer RN. Blood Gas Modality ROOM AIR Blood Gas Notified Time 06/29/2016 6:16:04 PM Blood Gas Notified Whom AB Blood Gas Specimen Source Blood arterial Blood Gas Temperature 37.0 FiO2 21.0 Oxyhemoglobin Percent 54.8 L Total Hemoglobin 9.9 L Activated Partial Thromboplast Time 30.0 INR International Normalized Ratio 1.08 Prothrombin Time 14.0 Prothrombin Time Ratio 1.1 Test 06/29/16 19:00 06/29/16 21:10 06/30/16 02:05 06/30/16 06:17 Arterial Blood HCO3 27.7 H Arterial Blood Base Excess 1.6 Arterial Blood Oxygen Saturation 97.6 Ghulam Test ACCEPTAB Arterial Blood Gas Puncture Site Right Radial Arterial Blood Carboxyhemoglobin 0.3 Arterial Blood Date Drawn 06/29/2016 9:15:41 PM Arterial Blood Methemoglobin 0.2 Arterial Blood pCO2 (Temp correct) 50.8 H Arterial Blood pH (Temp corrected) 7.354 Arterial Blood pO2 (Temp corrected) 115.3 H Blood Gas A-a O2 Differential 38.9 H Blood Gas Modality NASAL CANNULA Blood Gas Notified Time 06/29/2016 9:29:21 PM Blood Gas Notified Whom MG Blood Gas Specimen Source Blood arterial Blood Gas Temperature 37.0 FiO2 30.0 Oxyhemoglobin Percent 97.1 Total Hemoglobin 10.0 L Bedside Glucose 185 75 Anion Gap 16 Basophils # 0.1 Basophils % 0.7 Blood Morphology Comment Blood Urea Nitrogen 82 H Calcium Level 8.5 Carbon Dioxide Level 30 Chloride Level 102 Creatinine 2.30 H Eosinophils # 0.5 Eosinophils % 6.9 Glucose Level 154 Hematocrit 29.0 L Hemoglobin 9.7 L Lymphocytes # 1.0 Lymphocytes % 14.8 L Mean Corpuscular Hemoglobin 28.1 L Mean Corpuscular Hemoglobin Concent 33.5 Mean Corpuscular Volume 83.9 Mean Platelet Volume 8.2 Monocytes # 0.6 Monocytes % 9.2 Neutrophils # 4.8 Neutrophils % 68.4 Nucleated Red Blood Cells # 0.0 Nucleated Red Blood Cells % 0.0 Platelet Count 137 L Potassium Level 4.3 Red Blood Count 3.46 L Red Cell Distribution Width 15.4 H Sodium Level 144 White Blood Count 7.0 Test 06/30/16 07:46 Bedside Glucose 173 Medications Medications Current Medications Acetaminophen (Tylenol Tab) 500 mg Q4H PRN PO PAIN AND OR ELEVATED TEMP; Start 06/26/16 at 22:30 Atorvastatin Calcium (Lipitor) 40 mg QHS PO Last administered on 06/29/16 21: 12; Admin Dose 40 MG; Start 06/27/16 at 21:00 Bismuth Subsalicylate (Pepto-Bismol) 30 ml Q6H PRN PO stomach upset; Start at 22:30 Carvedilol (Coreg) 6.25 mg BID PO Last administered on 06/30/16 08:15; Admin Dose 6.25 MG; Start 06/27/16 at 09:00 Folic Acid (Folic Acid) 1 mg DAILY PO Last administered on 06/30/16 08:15; Admin Dose 1 MG; Start 06/27/16 at 09:00 Acetaminophen/ Hydrocodone Bitart ([place] (5/325)) 5 tab Q6H PRN PO PAIN; Start 06/26/16 at 22:30 Ibuprofen (Motrin) 500 mg Q4H PRN PO PAIN; Start 06/26/16 at 22:30 Insulin Glargine (Lantus) 8 unit QHS SC Last administered on 06/29/16 21:14; Admin Dose 8 UNIT; Start 06/27/16 at 21:00 Al Hydrox/Mg Hydrox/Simethicone (Mag-Al Plus) 30 ml Q4H PRN PO INDIGESTION, REFLUX, ACIDITY; Start 06/26/16 at 22:30 Magnesium Hydroxide (Milk Of Mag) 30 ml DAILY PRN PO CONSTIPATION; Start at 22:30 Pantoprazole (Protonix Tab) 40 mg DAILY@06 PO Last administered on 06/30/16 05 :52; Admin Dose 40 MG; Start 06/27/16 at 06:00 Zolpidem Tartrate (Ambien) 5 mg HS PRN PO INSOMNIA; Start 06/26/16 at 23:30 Aspirin (Aspirin) 325 mg DAILY PO Last administered on 06/30/16 08:14; Admin Dose 325 MG; Start 06/27/16 at 09:00 Diagnostic Test (Pha) (Accucheck) 1 ea 02 XX Last administered on 06/30/16 02: 23; Admin Dose 1 EA; Start 06/27/16 at 02:00 Hydralazine HCl (Apresoline) 25 mg Q8 PO Last administered on 06/29/16 21:55; Admin Dose 25 MG; Start 06/27/16 at 06:00 Miscellaneous Information 1 ea NOTE XX ; Start 06/26/16 at 23:30 Glucose (Glutose) 15 gm Q15M PRN PO DECREASED GLUCOSE; Start 06/26/16 at 23:30 Glucose (Glutose) 22.5 gm Q15M PRN PO DECREASED GLUCOSE; Start 06/26/16 at 23: 30 Dextrose (D50w Syringe) 25 ml Q15M PRN IV DECREASED GLUCOSE; Start 06/26/16 at 23:30 Dextrose (D50w Syringe) 50 ml Q15M PRN IV DECREASED GLUCOSE; Start 06/26/16 at 23:30 Glucagon (Glucagen) 1 mg Q15M PRN IM DECREASED GLUCOSE; Start 06/26/16 at 23:30 Glucose (Glutose) 15 gm Q15M PRN BUCCAL DECREASED GLUCOSE; Start 06/26/16 at 23 :30 Nitroglycerin (Nitroglycerin 2% Oint) 1 inch Q12 TD Last administered on t 08:15; Admin Dose 1 INCH; Start 06/27/16 at 00:00 Ondansetron HCl (Zofran Inj) 4 mg Q6H PRN IV NAUSEA AND/OR VOMITING; Start at 10:40 COLBY MAZARIEGOS Jun 30, 2016 11:17
[2016-06-30 12:50] LABS: FLUID LD 201 U/L; FLUID TOTAL PROTEIN < 2.0 g/dl; FLUID TYPE THORACENTESIS FLUID
--- NOTE | 2016-06-30 12:57 | RADRPT ---
PROCEDURE: US guided left thoracentesis. CLINICAL INDICATION: Shortness of breath. Left pleural effusion. TECHNIQUE: Prior to the procedure, informed consent was obtained. The risks, benefits, and alternatives were e xplained to the patient or the patient's family, including but not limited to bleeding, infection, p ain, visceral or vascular damage, shock, pneumothorax, chest tube placement, air embolism, and . The patient or the patient's family understood the risks and the alternatives and wished to proce ed with the study. Informed written consent was obtained. A procedural pause was performed. The patient's name, date of , and procedure to be performed were verified. Ultrasound of the left hemithorax was performed in the axial and sagittal planes. A left pleural eff usion is noted. Utilizing ultrasound guidance, optimal location for entry to the pleural cavity was ascertained. The overlying skin was prepped and draped in the usual sterile fashion. Approximately 10 ml of 1% Xylocaine was injected locally for pain control. Using ultrasound guidance, a 5-Swedish Yueh catheter was introduced into the left pleural space without difficulty. Fluid was aspirated. COMPARISON: None. FINDINGS: Initial ultrasound demonstrates fluid in the left pleural space. Approximately 0.775 liters of sero us fluid was aspirated and sent to the laboratory. IMPRESSION: 1. Satisfactory ultrasound-guided left thoracentesis. RPTAT: QQ .Ethan Bowles MD, Date Time Electronically viewed and signed by .Ethan Bowles MD, on 06/30/2016 12:57 .R/
[2016-06-30 13:37] LABS: FLUID APPEARANCE CLEAR; FLUID TYPE THORACENTHESIS
[2016-06-30 13:38] LABS: FLUID EOSINOPHIL 1 %; FLUID LYMPHOCYTES 56 %; FLUID MONOCYTES 22 %; FLUID NEUTROPHILS 21 %; FLUID WBC'S 155 /cmm
--- NOTE | 2016-06-30 16:10 | CONS ---
Date/Time of Note Date/Time of Note DATE: 06/30/16 TIME: 16:08 Assessment/Plan Assessment/Plan Additional Assessment/Plan Acute decompensated diastolic congestive heart failure Atrial fibrillation, rate controlled Severe mitral stenosis Moderate to severe tricuspid valve regurgitation Pulmonary hypertension Chronic kidney disease Hypertension Diabetes Dyslipidemia History of [employer] pacemaker Dementia -Patient status post thoracentesis. Continue diuretics as per our renal colleagues. Atrial fibrillation ventricular rates are controlled. Consultation Date/Type/Reason Admit Date/Time Jun 26, 2016 at 18:58 Initial Consult Date 06/30/16 Type of Consultation: cv 24 HR Interval Summary Free Text/Dictation Shortness of breath is improved, denies palpitations or chest pain Exam/Review of Systems Vital Signs Vitals Vital Signs Date Time Temp Pulse Resp B/P Pulse Ox O2 Delivery O2 Flow Rate FiO2 06/30/16 16:05 3.0 06/30/16 13:52 64 06/30/16 13:28 19 145/62 99 Nasal Cannula 06/30/16 12:00 98.1 06/28/16 15:11 28 Intake and Output 06/29/16 06/29/16 06/30/16 15:00 23:00 07:00 Intake Total 520 ml 200 ml Balance 520 ml 200 ml Exam Sleeping but arousable, follows commands, family at bedside, no apparent distress Head: normocephalic Neck: supple Respiratory: other (Coarse breath sounds bilaterally, no wheezing) Cardiovascular: irregular rhythm, systolic murmur Gastrointestinal: bowel sounds, non-tender, other (No guarding), soft Extremities: edema (Trace) Results Result Diagram: 06/30/16 0617 06/30/16 0617 Results 24 hrs Laboratory Tests Test 06/29/16 17:00 06/29/16 17:23 06/29/16 17:36 06/29/16 19:00 Arterial Blood HCO3 26.8 H 27.7 H Arterial Blood Base Excess 1.5 1.6 Arterial Blood Oxygen Saturation 55.1 L 97.6 Ghulam Test N/A ACCEPTAB Arterial Blood Gas Puncture Site Right Brachial Right Radial Arterial Blood Carboxyhemoglobin 0.2 0.3 Arterial Blood Date Drawn 06/29/2016 6:03:37 PM 06/29/2016 9:15:41 PM Arterial Blood Methemoglobin 0.4 0.2 Arterial Blood pCO2 (Temp correct) 45.3 H 50.8 H Arterial Blood pH (Temp corrected) 7.390 7.354 Arterial Blood pO2 (Temp corrected) 29.0 *L 115.3 H Blood Gas A-a O2 Differential 66.5 H 38.9 H Blood Gas Critical Value Read Back donavon Omer RN. Blood Gas Modality ROOM AIR NASAL CANNULA Blood Gas Notified Time 06/29/2016 6:16:04 PM 06/29/2016 9:29:21 PM Blood Gas Notified Whom AB MG Blood Gas Specimen Source Blood arterial Blood arterial Blood Gas Temperature 37.0 37.0 FiO2 21.0 30.0 Oxyhemoglobin Percent 54.8 L 97.1 Total Hemoglobin 9.9 L 10.0 L Bedside Glucose 303 H Activated Partial Thromboplast Time 30.0 INR International Normalized Ratio 1.08 Prothrombin Time 14.0 Prothrombin Time Ratio 1.1 Test 06/29/16 21:10 06/30/16 02:05 06/30/16 06:17 06/30/16 07:46 Bedside Glucose 185 75 173 Anion Gap 16 Basophils # 0.1 Basophils % 0.7 Blood Morphology Comment Blood Urea Nitrogen 82 H Calcium Level 8.5 Carbon Dioxide Level 30 Chloride Level 102 Creatinine 2.30 H Eosinophils # 0.5 Eosinophils % 6.9 Glucose Level 154 Hematocrit 29.0 L Hemoglobin 9.7 L Lymphocytes # 1.0 Lymphocytes % 14.8 L Mean Corpuscular Hemoglobin 28.1 L Mean Corpuscular Hemoglobin Concent 33.5 Mean Corpuscular Volume 83.9 Mean Platelet Volume 8.2 Monocytes # 0.6 Monocytes % 9.2 Neutrophils # 4.8 Neutrophils % 68.4 Nucleated Red Blood Cells # 0.0 Nucleated Red Blood Cells % 0.0 Platelet Count 137 L Potassium Level 4.3 Red Blood Count 3.46 L Red Cell Distribution Width 15.4 H Sodium Level 144 White Blood Count 7.0 Test 06/30/16 10:20 06/30/16 11:26 Body Fluid Appearance CLEAR Body Fluid Color YELLOW Body Fluid Eosinophils % 1 Body Fluid Lactate Dehydrogenase 201 Body Fluid Lymphocytes (%) 56 Body Fluid Monocytes % 22 Body Fluid Neutrophils % 21 Body Fluid RBC Body Fluid Total Protein < 2.0 Body Fluid Type THORACENTESIS FLUID Body Fluid Volume 800.0 Body Fluid WBC 155 Bedside Glucose 271 H Medications Medications Current Medications Acetaminophen (Tylenol Tab) 500 mg Q4H PRN PO PAIN AND OR ELEVATED TEMP; Start 06/26/16 at 22:30 Atorvastatin Calcium (Lipitor) 40 mg QHS PO Last administered on 06/29/16 21: 12; Admin Dose 40 MG; Start 06/27/16 at 21:00 Bismuth Subsalicylate (Pepto-Bismol) 30 ml Q6H PRN PO stomach upset; Start at 22:30 Carvedilol (Coreg) 6.25 mg BID PO Last administered on 06/30/16 08:15; Admin Dose 6.25 MG; Start 06/27/16 at 09:00 Folic Acid (Folic Acid) 1 mg DAILY PO Last administered on 06/30/16 08:15; Admin Dose 1 MG; Start 06/27/16 at 09:00 Acetaminophen/ Hydrocodone Bitart ([place] (5/325)) 5 tab Q6H PRN PO PAIN; Start 06/26/16 at 22:30 Ibuprofen (Motrin) 500 mg Q4H PRN PO PAIN; Start 06/26/16 at 22:30 Insulin Glargine (Lantus) 8 unit QHS SC Last administered on 06/29/16 21:14; Admin Dose 8 UNIT; Start 06/27/16 at 21:00 Al Hydrox/Mg Hydrox/Simethicone (Mag-Al Plus) 30 ml Q4H PRN PO INDIGESTION, REFLUX, ACIDITY; Start 06/26/16 at 22:30 Magnesium Hydroxide (Milk Of Mag) 30 ml DAILY PRN PO CONSTIPATION; Start at 22:30 Pantoprazole (Protonix Tab) 40 mg DAILY@06 PO Last administered on 06/30/16 05 :52; Admin Dose 40 MG; Start 06/27/16 at 06:00 Zolpidem Tartrate (Ambien) 5 mg HS PRN PO INSOMNIA; Start 06/26/16 at 23:30 Aspirin (Aspirin) 325 mg DAILY PO Last administered on 06/30/16 08:14; Admin Dose 325 MG; Start 06/27/16 at 09:00 Diagnostic Test (Pha) (Accucheck) 1 ea 02 XX Last administered on 06/30/16 02: 23; Admin Dose 1 EA; Start 06/27/16 at 02:00 Hydralazine HCl (Apresoline) 25 mg Q8 PO Last administered on 06/30/16 13:25; Admin Dose 25 MG; Start 06/27/16 at 06:00 Miscellaneous Information 1 ea NOTE XX ; Start 06/26/16 at 23:30 Glucose (Glutose) 15 gm Q15M PRN PO DECREASED GLUCOSE; Start 06/26/16 at 23:30 Glucose (Glutose) 22.5 gm Q15M PRN PO DECREASED GLUCOSE; Start 06/26/16 at 23: 30 Dextrose (D50w Syringe) 25 ml Q15M PRN IV DECREASED GLUCOSE; Start 06/26/16 at 23:30 Dextrose (D50w Syringe) 50 ml Q15M PRN IV DECREASED GLUCOSE; Start 06/26/16 at 23:30 Glucagon (Glucagen) 1 mg Q15M PRN IM DECREASED GLUCOSE; Start 06/26/16 at 23:30 Glucose (Glutose) 15 gm Q15M PRN BUCCAL DECREASED GLUCOSE; Start 06/26/16 at 23 :30 Nitroglycerin (Nitroglycerin 2% Oint) 1 inch Q12 TD Last administered on 08:15; Admin Dose 1 INCH; Start 06/27/16 at 00:00 Ondansetron HCl (Zofran Inj) 4 mg Q6H PRN IV NAUSEA AND/OR VOMITING; Start at 10:40 Ricky Murguia DO Jun 30, 2016 16:10
--- NOTE | 2016-06-30 19:45 | PN ---
Date/Time of Note Date/Time of Note DATE: 06/30/16 TIME: 19:44 Assessment/Plan VTE Prophylaxis VTE Prophylaxis Intervention: other Lines/Catheters IV [facility] [place] Urinary Cath still in place: No Assessment/Plan Chief Complaint/Hosp Course IMPRESSION: 1. The patient has congestive heart failure. 2. Rule out myocardial infarction. 3. Hypertension. 4. Diabetes mellitus. 5. Anemia. 6. Chronic kidney disease. 7. Atherosclerotic heart disease. 8. Dyslipidemia. 9 pleural effusion plan S/P thoracentesis lasix Problems: Subjective 24 Hr Interval Summary Respiratory: shortness of breath (BETTER) Exam/Review of Systems Vital Signs Vitals Vital Signs Date Time Temp Pulse Resp B/P Pulse Ox O2 Delivery O2 Flow Rate FiO2 06/30/16 17:40 63 06/30/16 16:14 97.8 20 140/62 99 06/30/16 16:05 3.0 06/30/16 13:28 Nasal Cannula 06/28/16 15:11 28 Intake and Output 06/29/16 06/29/16 06/30/16 15:00 23:00 07:00 Intake Total 520 ml 200 ml Balance 520 ml 200 ml Exam Respiratory: diminished breath sounds Cardiovascular: regular rate and rhythm Gastrointestinal: soft Musculoskeletal: nl extremities to inspection Extremities: normal pulses Results Result Diagram: 06/30/16 0617 06/30/16 0617 Results 24 hrs Laboratory Tests Test 06/29/16 21:10 06/30/16 02:05 06/30/16 06:17 06/30/16 07:46 Bedside Glucose 185 75 173 Anion Gap 16 Basophils # 0.1 Basophils % 0.7 Blood Morphology Comment Blood Urea Nitrogen 82 H Calcium Level 8.5 Carbon Dioxide Level 30 Chloride Level 102 Creatinine 2.30 H Eosinophils # 0.5 Eosinophils % 6.9 Glucose Level 154 Hematocrit 29.0 L Hemoglobin 9.7 L Lymphocytes # 1.0 Lymphocytes % 14.8 L Mean Corpuscular Hemoglobin 28.1 L Mean Corpuscular Hemoglobin Concent 33.5 Mean Corpuscular Volume 83.9 Mean Platelet Volume 8.2 Monocytes # 0.6 Monocytes % 9.2 Neutrophils # 4.8 Neutrophils % 68.4 Nucleated Red Blood Cells # 0.0 Nucleated Red Blood Cells % 0.0 Platelet Count 137 L Potassium Level 4.3 Red Blood Count 3.46 L Red Cell Distribution Width 15.4 H Sodium Level 144 White Blood Count 7.0 Test 06/30/16 10:20 06/30/16 11:26 06/30/16 17:45 Body Fluid Appearance CLEAR Body Fluid Color YELLOW Body Fluid Eosinophils % 1 Body Fluid Lactate Dehydrogenase 201 Body Fluid Lymphocytes (%) 56 Body Fluid Monocytes % 22 Body Fluid Neutrophils % 21 Body Fluid RBC Body Fluid Total Protein < 2.0 Body Fluid Type THORACENTESIS FLUID Body Fluid Volume 800.0 Body Fluid WBC 155 Bedside Glucose 271 H 239 H Medications Medications Current Medications Acetaminophen (Tylenol Tab) 500 mg Q4H PRN PO PAIN AND OR ELEVATED TEMP; Start 06/26/16 at 22:30 Atorvastatin Calcium (Lipitor) 40 mg QHS PO Last administered on 06/29/16 21: 12; Admin Dose 40 MG; Start 06/27/16 at 21:00 Bismuth Subsalicylate (Pepto-Bismol) 30 ml Q6H PRN PO stomach upset; Start at 22:30 Carvedilol (Coreg) 6.25 mg BID PO Last administered on 06/30/16 08:15; Admin Dose 6.25 MG; Start 06/27/16 at 09:00 Folic Acid (Folic Acid) 1 mg DAILY PO Last administered on 06/30/16 08:15; Admin Dose 1 MG; Start 06/27/16 at 09:00 Acetaminophen/ Hydrocodone Bitart ([place] (5/325)) 5 tab Q6H PRN PO PAIN; Start 06/26/16 at 22:30 Ibuprofen (Motrin) 500 mg Q4H PRN PO PAIN; Start 06/26/16 at 22:30 Insulin Glargine (Lantus) 8 unit QHS SC Last administered on 06/29/16 21:14; Admin Dose 8 UNIT; Start 06/27/16 at 21:00 Al Hydrox/Mg Hydrox/Simethicone (Mag-Al Plus) 30 ml Q4H PRN PO INDIGESTION, REFLUX, ACIDITY; Start 06/26/16 at 22:30 Magnesium Hydroxide (Milk Of Mag) 30 ml DAILY PRN PO CONSTIPATION; Start at 22:30 Pantoprazole (Protonix Tab) 40 mg DAILY@06 PO Last administered on 06/30/16 05 :52; Admin Dose 40 MG; Start 06/27/16 at 06:00 Zolpidem Tartrate (Ambien) 5 mg HS PRN PO INSOMNIA; Start 06/26/16 at 23:30 Aspirin (Aspirin) 325 mg DAILY PO Last administered on 06/30/16 08:14; Admin Dose 325 MG; Start 06/27/16 at 09:00 Diagnostic Test (Pha) (Accucheck) 1 ea 02 XX Last administered on 06/30/16 02: 23; Admin Dose 1 EA; Start 06/27/16 at 02:00 Hydralazine HCl (Apresoline) 25 mg Q8 PO Last administered on 06/30/16 13:25; Admin Dose 25 MG; Start 06/27/16 at 06:00 Miscellaneous Information 1 ea NOTE XX ; Start 06/26/16 at 23:30 Glucose (Glutose) 15 gm Q15M PRN PO DECREASED GLUCOSE; Start 06/26/16 at 23:30 Glucose (Glutose) 22.5 gm Q15M PRN PO DECREASED GLUCOSE; Start 06/26/16 at 23: 30 Dextrose (D50w Syringe) 25 ml Q15M PRN IV DECREASED GLUCOSE; Start 06/26/16 at 23:30 Dextrose (D50w Syringe) 50 ml Q15M PRN IV DECREASED GLUCOSE; Start 06/26/16 at 23:30 Glucagon (Glucagen) 1 mg Q15M PRN IM DECREASED GLUCOSE; Start 06/26/16 at 23:30 Glucose (Glutose) 15 gm Q15M PRN BUCCAL DECREASED GLUCOSE; Start 06/26/16 at 23 :30 Nitroglycerin (Nitroglycerin 2% Oint) 1 inch Q12 TD Last administered on 08:15; Admin Dose 1 INCH; Start 06/27/16 at 00:00 Ondansetron HCl (Zofran Inj) 4 mg Q6H PRN IV NAUSEA AND/OR VOMITING; Start at 10:40 ARIELA TIERNEY MD Jun 30, 2016 19:45
[2016-06-30] MEDS: ATORVASTATIN 40 MG TAB PO SCH (21:01)
[2016-06-30] MEDS: INSULIN GLARGINE [LANtus] 3 ML PEN SC SCH (21:04)
[2016-07-01] VITALS (11 sets, daily range): BP systolic 131–170; BP diastolic 63–77; PULSE 60–78; RESP 17–18
[2016-07-01] MEDS: ACCUCHECK XX SCH (02:02)
[2016-07-01] MEDS: FUROSEMIDE 40 MG INJ IV SCH ×3 (06:05→19:34)
[2016-07-01] MEDS: PANTOPRAZOLE (EC) 40 MG TAB PO SCH (06:05)
[2016-07-01] MEDS: LEVOTHYROXINE 75 MCG TAB PO SCH (07:08)
[2016-07-01 08:14] LABS: POTASSIUM 4.1 mmol/L (3.5-5.1)
[2016-07-01 08:17] LABS: CREATININE 2.27 mg/dl (0.44-1.00)
[2016-07-01 08:18] LABS: CALCIUM 8.6 mg/dl (8.4-10.2)
[2016-07-01] MEDS: ASPIRIN 325 MG TAB PO SCH (09:33)
[2016-07-01] MEDS: FOLIC ACID 1 MG TAB PO SCH (09:33)
[2016-07-01] MEDS: INSULIN ASPART [NOVOLOG] 3 ML PEN SC SCH ×4 (09:38→21:22)
[2016-07-01] MEDS: NITROGLYCERIN 2% 1 GM OINT PKT TD SCH ×2 (10:13→21:13)
--- NOTE | 2016-07-01 10:38 | CONS ---
Date/Time of Note Date/Time of Note DATE: 07/01/16 TIME: 10:35 Assessment/Plan Assessment/Plan Additional Assessment/Plan Assessment and recommendation; next 1. Patient admitted with CHF exacerbation with bilateral pleural effusions, status post left thoracentesis. Next 2. History of hypertension. Next 3. History of CHF. Next 4. History of diabetes. 5. History of pacemaker implant patient. 6. History of underlying coronary artery disease. 7. Hypothyroidism. 8. Renal insufficiency. Continue current treatment. Patient responding well to diuresis. Consultation Date/Type/Reason Admit Date/Time Jun 26, 2016 at 18:58 Initial Consult Date 06/30/16 Type of Consultation: Pulmonary 24 HR Interval Summary Free Text/Dictation Patient condition is improved with decreased shortness of breath. Patient underwent a left thoracentesis yesterday 0.7 L of fluid was removed. Has any chest pain, wheezing, cough or sputum production. Next General examination; elderly lady awake and alert currently in no distress. Exam/Review of Systems Vital Signs Vitals Vital Signs Date Time Temp Pulse Resp B/P Pulse Ox O2 Delivery O2 Flow Rate FiO2 07/01/16 08:31 76 07/01/16 07:21 97.9 18 170/76 100 07/01/16 02:01 3.0 06/30/16 20:00 Nasal Cannula 06/28/16 15:11 28 Exam H EENT examination; supple neck, positive JVD. No lymphadenopathy. Patient is edentulous and wears dentures. Pharynx is clear. No neck masses. No thyromegaly. Pupils are small bilaterally. Chest examination; upper lobes are clear to auscultation with crackles in lower lobes bilaterally. S1-S2 audible, no murmurs. Regular rhythm. Abdomen examination; soft, nontender. No organomegaly. Bowel sounds audible. Extremity examination; no peripheral edema. [employer]IST examination; no focal deficit. Chest x-ray was reviewed post thoracentesis yesterday which is showing significant reduction in left pleural effusion. A small right pleural effusion is present. Results Result Diagram: 06/30/16 0617 07/01/16 0743 Results 24 hrs Laboratory Tests Test 06/30/16 11:26 06/30/16 17:45 06/30/16 21:00 07/01/16 01:54 Bedside Glucose 271 H 239 H 262 H 218 Test 07/01/16 07:43 07/01/16 08:13 Anion Gap 15 Blood Urea Nitrogen 77 H Calcium Level 8.6 Carbon Dioxide Level 30 Chloride Level 101 Creatinine 2.27 H Glucose Level 176 Potassium Level 4.1 Sodium Level 142 Bedside Glucose 190 Medications Medications Current Medications Acetaminophen (Tylenol Tab) 500 mg Q4H PRN PO PAIN AND OR ELEVATED TEMP; Start 06/26/16 at 22:30 Atorvastatin Calcium (Lipitor) 40 mg QHS PO Last administered on 06/30/16 21: 01; Admin Dose 40 MG; Start 06/27/16 at 21:00 Bismuth Subsalicylate (Pepto-Bismol) 30 ml Q6H PRN PO stomach upset; Start at 22:30 Carvedilol (Coreg) 6.25 mg BID PO Last administered on 07/01/16 09:33; Admin Dose 6.25 MG; Start 06/27/16 at 09:00 Folic Acid (Folic Acid) 1 mg DAILY PO Last administered on 07/01/16 09:33; Admin Dose 1 MG; Start 06/27/16 at 09:00 Acetaminophen/ Hydrocodone Bitart ([place] (5/325)) 5 tab Q6H PRN PO PAIN; Start 06/26/16 at 22:30 Ibuprofen (Motrin) 500 mg Q4H PRN PO PAIN; Start 06/26/16 at 22:30 Insulin Glargine (Lantus) 8 unit QHS SC Last administered on 06/30/16 21:04; Admin Dose 8 UNIT; Start 06/27/16 at 21:00 Al Hydrox/Mg Hydrox/Simethicone (Mag-Al Plus) 30 ml Q4H PRN PO INDIGESTION, REFLUX, ACIDITY; Start 06/26/16 at 22:30 Magnesium Hydroxide (Milk Of Mag) 30 ml DAILY PRN PO CONSTIPATION; Start at 22:30 Pantoprazole (Protonix Tab) 40 mg DAILY@06 PO Last administered on 07/01/16 06 :05; Admin Dose 40 MG; Start 06/27/16 at 06:00 Zolpidem Tartrate (Ambien) 5 mg HS PRN PO INSOMNIA; Start 06/26/16 at 23:30 Aspirin (Aspirin) 325 mg DAILY PO Last administered on 07/01/16 09:33; Admin Dose 325 MG; Start 06/27/16 at 09:00 Diagnostic Test (Pha) (Accucheck) 1 ea 02 XX Last administered on 07/01/16 02: 02; Admin Dose 1 EA; Start 06/27/16 at 02:00 Hydralazine HCl (Apresoline) 25 mg Q8 PO Last administered on 07/01/16 06:05; Admin Dose 25 MG; Start 06/27/16 at 06:00 Miscellaneous Information 1 ea NOTE XX ; Start 06/26/16 at 23:30 Glucose (Glutose) 15 gm Q15M PRN PO DECREASED GLUCOSE; Start 06/26/16 at 23:30 Glucose (Glutose) 22.5 gm Q15M PRN PO DECREASED GLUCOSE; Start 06/26/16 at 23: 30 Dextrose (D50w Syringe) 25 ml Q15M PRN IV DECREASED GLUCOSE; Start 06/26/16 at 23:30 Dextrose (D50w Syringe) 50 ml Q15M PRN IV DECREASED GLUCOSE; Start 06/26/16 at 23:30 Glucagon (Glucagen) 1 mg Q15M PRN IM DECREASED GLUCOSE; Start 06/26/16 at 23:30 Glucose (Glutose) 15 gm Q15M PRN BUCCAL DECREASED GLUCOSE; Start 06/26/16 at 23 :30 Nitroglycerin (Nitroglycerin 2% Oint) 1 inch Q12 TD Last administered on 10:13; Admin Dose 1 INCH; Start 06/27/16 at 00:00 Ondansetron HCl (Zofran Inj) 4 mg Q6H PRN IV NAUSEA AND/OR VOMITING; Start at 10:40 COLBY MAZARIEGOS Jul 01, 2016 10:38
--- NOTE | 2016-07-01 18:59 | CONS ---
Date/Time of Note Date/Time of Note DATE: 07/01/16 TIME: 18:57 Assessment/Plan Assessment/Plan Additional Assessment/Plan Acute decompensated diastolic congestive heart failure Atrial fibrillation, rate controlled Severe mitral stenosis Moderate to severe tricuspid valve regurgitation Pulmonary hypertension Chronic kidney disease Hypertension Diabetes Dyslipidemia History of [employer] pacemaker Dementia -Respiratory status has improved. Heart rate remains well controlled. Would consider adjusting diuretics to p.o. regimen as per our nephrology colleagues. DC planning Consultation Date/Type/Reason Admit Date/Time Jun 26, 2016 at 18:58 Initial Consult Date 06/30/16 Type of Consultation: cv 24 HR Interval Summary Free Text/Dictation Shortness of breath is better, denies palpitations or dizziness. Exam/Review of Systems Vital Signs Vitals Vital Signs Date Time Temp Pulse Resp B/P Pulse Ox O2 Delivery O2 Flow Rate FiO2 07/01/16 16:22 73 07/01/16 15:31 98.0 18 146/77 96 07/01/16 15:30 3.0 06/30/16 20:00 Nasal Cannula 06/28/16 15:11 28 Exam Alert, no apparent distress, family at bedside, following commands Head: normocephalic Neck: supple Respiratory: other (Coarse breath sounds bilaterally, no wheezing) Cardiovascular: irregular rhythm, other (S1-S2 heard), systolic murmur Gastrointestinal: bowel sounds, non-tender, soft Extremities: edema (Trace) Results Result Diagram: 06/30/16 0617 07/01/16 0743 Results 24 hrs Laboratory Tests Test 06/30/16 21:00 07/01/16 01:54 07/01/16 07:43 07/01/16 08:13 Bedside Glucose 262 H 218 190 Anion Gap 15 Blood Urea Nitrogen 77 H Calcium Level 8.6 Carbon Dioxide Level 30 Chloride Level 101 Creatinine 2.27 H Glucose Level 176 Potassium Level 4.1 Sodium Level 142 Test 07/01/16 12:15 07/01/16 18:07 Bedside Glucose 308 H 149 Medications Medications Current Medications Acetaminophen (Tylenol Tab) 500 mg Q4H PRN PO PAIN AND OR ELEVATED TEMP; Start 06/26/16 at 22:30 Atorvastatin Calcium (Lipitor) 40 mg QHS PO Last administered on 06/30/16t 21: 01; Admin Dose 40 MG; Start 06/27/16 at 21:00 Bismuth Subsalicylate (Pepto-Bismol) 30 ml Q6H PRN PO stomach upset; Start at 22:30 Carvedilol (Coreg) 6.25 mg BID PO Last administered on 07/01/16 09:33; Admin Dose 6.25 MG; Start 06/27/16 at 09:00 Folic Acid (Folic Acid) 1 mg DAILY PO Last administered on 07/01/16 09:33; Admin Dose 1 MG; Start 06/27/16 at 09:00 Acetaminophen/ Hydrocodone Bitart ([place] (5/325)) 5 tab Q6H PRN PO PAIN; Start 06/26/16 at 22:30 Ibuprofen (Motrin) 500 mg Q4H PRN PO PAIN; Start 06/26/16 at 22:30 Insulin Glargine (Lantus) 8 unit QHS SC Last administered on 06/30/16 21:04; Admin Dose 8 UNIT; Start 06/27/16 at 21:00 Al Hydrox/Mg Hydrox/Simethicone (Mag-Al Plus) 30 ml Q4H PRN PO INDIGESTION, REFLUX, ACIDITY; Start 06/26/16 at 22:30 Magnesium Hydroxide (Milk Of Mag) 30 ml DAILY PRN PO CONSTIPATION; Start at 22:30 Pantoprazole (Protonix Tab) 40 mg DAILY@06 PO Last administered on 07/01/16 06 :05; Admin Dose 40 MG; Start 06/27/16 at 06:00 Zolpidem Tartrate (Ambien) 5 mg HS PRN PO INSOMNIA; Start 06/26/16 at 23:30 Aspirin (Aspirin) 325 mg DAILY PO Last administered on 07/01/16 09:33; Admin Dose 325 MG; Start 06/27/16 at 09:00 Diagnostic Test (Pha) (Accucheck) 1 ea 02 XX Last administered on 07/01/16 02: 02; Admin Dose 1 EA; Start 06/27/16 at 02:00 Hydralazine HCl (Apresoline) 25 mg Q8 PO Last administered on 07/01/16 15:26; Admin Dose 25 MG; Start 06/27/16 at 06:00 Miscellaneous Information 1 ea NOTE XX ; Start 06/26/16 at 23:30 Glucose (Glutose) 15 gm Q15M PRN PO DECREASED GLUCOSE; Start 06/26/16 at 23:30 Glucose (Glutose) 22.5 gm Q15M PRN PO DECREASED GLUCOSE; Start 06/26/16 at 23: 30 Dextrose (D50w Syringe) 25 ml Q15M PRN IV DECREASED GLUCOSE; Start 06/26/16 at 23:30 Dextrose (D50w Syringe) 50 ml Q15M PRN IV DECREASED GLUCOSE; Start 06/26/16 at 23:30 Glucagon (Glucagen) 1 mg Q15M PRN IM DECREASED GLUCOSE; Start 06/26/16 at 23:30 Glucose (Glutose) 15 gm Q15M PRN BUCCAL DECREASED GLUCOSE; Start 06/26/16 at 23 :30 Nitroglycerin (Nitroglycerin 2% Oint) 1 inch Q12 TD Last administered on t 10:13; Admin Dose 1 INCH; Start 06/27/16 at 00:00 Ondansetron HCl (Zofran Inj) 4 mg Q6H PRN IV NAUSEA AND/OR VOMITING; Start at 10:40 Ricky Murguia DO Jul 01, 2016 18:59
--- NOTE | 2016-07-01 20:59 | PN ---
Date/Time of Note Date/Time of Note DATE: 07/01/16 TIME: 20:59 Assessment/Plan VTE Prophylaxis VTE Prophylaxis Intervention: other Lines/Catheters [facility] Saline Lock Urinary Cath still in place: No Assessment/Plan Chief Complaint/Hosp Course IMPRESSION: 1. The patient has congestive heart failure. 2. Rule out myocardial infarction. 3. Hypertension. 4. Diabetes mellitus. 5. Anemia. 6. Chronic kidney disease. 7. Atherosclerotic heart disease. 8. Dyslipidemia. 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 Problems: Subjective 24 Hr Interval Summary Respiratory: shortness of breath (BETTER) Gastrointestinal: no complaints Exam/Review of Systems Vital Signs Vitals Vital Signs Date Time Temp Pulse Resp B/P Pulse Ox O2 Delivery O2 Flow Rate FiO2 07/01/16 20:09 78 07/01/16 20:00 97.9 17 148/68 96 07/01/16 15:30 3.0 07/01/16 08:36 Nasal Cannula 06/28/16 15:11 28 Exam Respiratory: diminished breath sounds Cardiovascular: regular rate and rhythm Gastrointestinal: soft Musculoskeletal: nl extremities to inspection Results Result Diagram: 06/30/16 0617 07/01/16 0743 Results 24 hrs Laboratory Tests Test 06/30/16 21:00 07/01/16 01:54 07/01/16 07:43 07/01/16 08:13 Bedside Glucose 262 H 218 190 Anion Gap 15 Blood Urea Nitrogen 77 H Calcium Level 8.6 Carbon Dioxide Level 30 Chloride Level 101 Creatinine 2.27 H Glucose Level 176 Potassium Level 4.1 Sodium Level 142 Test 07/01/16 12:15 07/01/16 18:07 Bedside Glucose 308 H 149 Medications Medications Current Medications Acetaminophen (Tylenol Tab) 500 mg Q4H PRN PO PAIN AND OR ELEVATED TEMP; Start 06/26/16 at 22:30 Atorvastatin Calcium (Lipitor) 40 mg QHS PO Last administered on 06/30/16 21: 01; Admin Dose 40 MG; Start 06/27/16 at 21:00 Bismuth Subsalicylate (Pepto-Bismol) 30 ml Q6H PRN PO stomach upset; Start at 22:30 Carvedilol (Coreg) 6.25 mg BID PO Last administered on 2/21/17at 09:33; Admin Dose 6.25 MG; Start 06/27/16 at 09:00 Folic Acid (Folic Acid) 1 mg DAILY PO Last administered on 07/01/16 09:33; Admin Dose 1 MG; Start 06/27/16 at 09:00 Acetaminophen/ Hydrocodone Bitart ([place] (5/325)) 5 tab Q6H PRN PO PAIN; Start 06/26/16 at 22:30 Ibuprofen (Motrin) 500 mg Q4H PRN PO PAIN; Start 06/26/16 at 22:30 Insulin Glargine (Lantus) 8 unit QHS SC Last administered on 06/30/16 21:04; Admin Dose 8 UNIT; Start 06/27/16 at 21:00 Al Hydrox/Mg Hydrox/Simethicone (Mag-Al Plus) 30 ml Q4H PRN PO INDIGESTION, REFLUX, ACIDITY; Start 06/26/16 at 22:30 Magnesium Hydroxide (Milk Of Mag) 30 ml DAILY PRN PO CONSTIPATION; Start at 22:30 Pantoprazole (Protonix Tab) 40 mg DAILY@06 PO Last administered on 07/01/16 06 :05; Admin Dose 40 MG; Start 06/27/16 at 06:00 Zolpidem Tartrate (Ambien) 5 mg HS PRN PO INSOMNIA; Start 06/26/16 at 23:30 Aspirin (Aspirin) 325 mg DAILY PO Last administered on 07/01/16 09:33; Admin Dose 325 MG; Start 06/27/16 at 09:00 Diagnostic Test (Pha) (Accucheck) 1 ea 02 XX Last administered on 07/01/16 02: 02; Admin Dose 1 EA; Start 06/27/16 at 02:00 Hydralazine HCl (Apresoline) 25 mg Q8 PO Last administered on 07/01/16 15:26; Admin Dose 25 MG; Start 06/27/16 at 06:00 Miscellaneous Information 1 ea NOTE XX ; Start 06/26/16 at 23:30 Glucose (Glutose) 15 gm Q15M PRN PO DECREASED GLUCOSE; Start 06/26/16 at 23:30 Glucose (Glutose) 22.5 gm Q15M PRN PO DECREASED GLUCOSE; Start 06/26/16 at 23: 30 Dextrose (D50w Syringe) 25 ml Q15M PRN IV DECREASED GLUCOSE; Start 06/26/16 at 23:30 Dextrose (D50w Syringe) 50 ml Q15M PRN IV DECREASED GLUCOSE; Start 06/26/16 at 23:30 Glucagon (Glucagen) 1 mg Q15M PRN IM DECREASED GLUCOSE; Start 06/26/16 at 23:30 Glucose (Glutose) 15 gm Q15M PRN BUCCAL DECREASED GLUCOSE; Start 06/26/16 at 23 :30 Nitroglycerin (Nitroglycerin 2% Oint) 1 inch Q12 TD Last administered on t 10:13; Admin Dose 1 INCH; Start 06/27/16 at 00:00 Ondansetron HCl (Zofran Inj) 4 mg Q6H PRN IV NAUSEA AND/OR VOMITING; Start at 10:40 ARIELA TIERNEY MD Jul 01, 2016 20:59
[2016-07-01] MEDS: ATORVASTATIN 40 MG TAB PO SCH (21:12)
[2016-07-01] MEDS: INSULIN GLARGINE [LANtus] 3 ML PEN SC SCH (21:23)
[2016-07-01] MEDS ORDERED: LORAZEPAM 0.5 MG TAB PO PRN (22:00)
[2016-07-02] VITALS (14 sets, daily range): BP systolic 122–169; BP diastolic 51–76; PULSE 62–84; RESP 15–18
[2016-07-02] MEDS: LORAZEPAM 2 MG INJ IM PRN ×2 (01:23→20:30)
[2016-07-02] MEDS: ACCUCHECK XX SCH (02:58)
[2016-07-02] MEDS: LEVOTHYROXINE 75 MCG TAB PO SCH (05:45)
[2016-07-02] MEDS: FUROSEMIDE 40 MG TAB PO SCH ×2 (05:45→17:52)
[2016-07-02] MEDS: PANTOPRAZOLE (EC) 40 MG TAB PO SCH (05:45)
[2016-07-02 07:38] LABS: POTASSIUM 4.5 mmol/L (3.5-5.1)
[2016-07-02 07:40] LABS: CREATININE 1.94 mg/dl (0.44-1.00)
[2016-07-02 07:41] LABS: CALCIUM 9.4 mg/dl (8.4-10.2)
[2016-07-02] MEDS: NITROGLYCERIN 2% 1 GM OINT PKT TD SCH ×2 (08:08→20:26)
[2016-07-02] MEDS: ASPIRIN 325 MG TAB PO SCH (08:08)
[2016-07-02] MEDS: FOLIC ACID 1 MG TAB PO SCH (08:08)
[2016-07-02] MEDS: INSULIN ASPART [NOVOLOG] 3 ML PEN SC SCH ×4 (08:15→20:35)
--- NOTE | 2016-07-02 10:09 | RADRPT ---
PROCEDURE: XR Chest. CLINICAL INDICATION: Shortness of breath. TECHNIQUE: Single frontal view. COMPARISON: 06/30/2016. FINDINGS: Mild interstitial pulmonary edema is improved. There is mild atelectasis at the lung bases. The jonn ngs are otherwise clear. The heart is enlarged. There is calcification in the aorta consistent with atherosclerosis. There is a left-sided single lead permanent pacemaker. There is no pleural effusion. There is no pneumothorax. IMPRESSION: 1. Improved pulmonary edema. 2. No other change from 06/30/2016. RPTAT: QQ .Ethan Bowles MD, MD Date Time Electronically viewed and signed by .Ethan Bowles MD, MD on 07/02/2016 10:09 .R/
--- NOTE | 2016-07-02 11:07 | CONS ---
Date/Time of Note Date/Time of Note DATE: 07/02/16 TIME: 11:04 Assessment/Plan Assessment/Plan Additional Assessment/Plan Assessment and recommendations; next 1. Patient admitted with CHF exacerbation with marked clinical and radiological improvement. Chest x-ray was reviewed from today which is showing significant reduction in bilateral pleural effusions. As well as pulmonary edema. 2. Hypertension. 3. Diabetes. 4. Hypothyroidism. 5. Renal insufficiency. Continue current treatment. Consultation Date/Type/Reason Admit Date/Time Jun 26, 2016 at 18:58 Initial Consult Date 06/30/16 Type of Consultation: Pulmonary 24 HR Interval Summary Free Text/Dictation Patient condition is stable. Denies any shortness of breath. Any chest pain, wheezing. Any cough or sputum production. General examination; elderly lady, currently in no distress awake and alert. Exam/Review of Systems Vital Signs Vitals Vital Signs Date Time Temp Pulse Resp B/P Pulse Ox O2 Delivery O2 Flow Rate FiO2 07/02/16 08:06 82 07/02/16 08:03 98.0 18 169/73 98 07/02/16 05:43 Room Air 07/02/16 04:54 3.0 06/28/16 15:11 28 Intake and Output 07/01/16 07/01/16 07/02/16 15:00 23:00 07:00 Intake Total 420 ml 200 ml Balance 420 ml 200 ml Exam H EENT examination; supple neck, positive JVD. No lymphadenopathy. Pharynx is clear. Patient is edentulous and wears dentures. There is a well-healed thyroidectomy scar. Pupils are small bilaterally. No neck masses. No lymphadenopathy. Chest examination; diminished but clear breath sounds bilaterally. S1-S2 audible, no murmurs. Regular rhythm. Abdomen examination; soft, nondistended. No organomegaly. Bowel sounds audible. Extremity examination; no peripheral edema. 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 Results Result Diagram: 06/30/16 0617 07/02/16 0720 Results 24 hrs Laboratory Tests Test 07/01/16 12:15 07/01/16 18:07 07/01/16 21:16 07/02/16 02:53 Bedside Glucose 308 H 149 241 H 257 H Test 07/02/16 07:20 07/02/16 07:43 Anion Gap 18 H Blood Urea Nitrogen 72 H Calcium Level 9.4 Carbon Dioxide Level 30 Chloride Level 101 Creatinine 1.94 H Glucose Level 196 Potassium Level 4.5 Sodium Level 144 Bedside Glucose 186 Medications Medications Current Medications Acetaminophen (Tylenol Tab) 500 mg Q4H PRN PO PAIN AND OR ELEVATED TEMP; Start 06/26/16 at 22:30 Atorvastatin Calcium (Lipitor) 40 mg QHS PO Last administered on 07/01/16 21: 12; Admin Dose 40 MG; Start 06/27/16 at 21:00 Bismuth Subsalicylate (Pepto-Bismol) 30 ml Q6H PRN PO stomach upset; Start at 22:30 Carvedilol (Coreg) 6.25 mg BID PO Last administered on 07/02/16 08:08; Admin Dose 6.25 MG; Start 06/27/16 at 09:00 Folic Acid (Folic Acid) 1 mg DAILY PO Last administered on 07/02/16 08:08; Admin Dose 1 MG; Start 06/27/16 at 09:00 Acetaminophen/ Hydrocodone Bitart ([place] (5/325)) 5 tab Q6H PRN PO PAIN; Start 06/26/16 at 22:30 Ibuprofen (Motrin) 500 mg Q4H PRN PO PAIN; Start 06/26/16 at 22:30 Insulin Glargine (Lantus) 8 unit QHS SC Last administered on 07/01/16 21:23; Admin Dose 8 UNIT; Start 06/27/16 at 21:00 Al Hydrox/Mg Hydrox/Simethicone (Mag-Al Plus) 30 ml Q4H PRN PO INDIGESTION, REFLUX, ACIDITY; Start 06/26/16 at 22:30 Magnesium Hydroxide (Milk Of Mag) 30 ml DAILY PRN PO CONSTIPATION; Start at 22:30 Pantoprazole (Protonix Tab) 40 mg DAILY@06 PO Last administered on 07/02/16 05 :45; Admin Dose 40 MG; Start 06/27/16 at 06:00 Zolpidem Tartrate (Ambien) 5 mg HS PRN PO INSOMNIA; Start 06/26/16 at 23:30 Aspirin (Aspirin) 325 mg DAILY PO Last administered on 07/02/16 08:08; Admin Dose 325 MG; Start 06/27/16 at 09:00 Diagnostic Test (Pha) (Accucheck) 1 ea 02 XX Last administered on 07/02/16 02: 58; Admin Dose 1 EA; Start 06/27/16 at 02:00 Hydralazine HCl (Apresoline) 25 mg Q8 PO Last administered on 07/02/16 05:45; Admin Dose 25 MG; Start 06/27/16 at 06:00 Miscellaneous Information 1 ea NOTE XX ; Start 06/26/16 at 23:30 Glucose (Glutose) 15 gm Q15M PRN PO DECREASED GLUCOSE; Start 06/26/16 at 23:30 Glucose (Glutose) 22.5 gm Q15M PRN PO DECREASED GLUCOSE; Start 06/26/16 at 23: 30 Dextrose (D50w Syringe) 25 ml Q15M PRN IV DECREASED GLUCOSE; Start 06/26/16 at 23:30 Dextrose (D50w Syringe) 50 ml Q15M PRN IV DECREASED GLUCOSE; Start 06/26/16 at 23:30 Glucagon (Glucagen) 1 mg Q15M PRN IM DECREASED GLUCOSE; Start 06/26/16 at 23:30 Glucose (Glutose) 15 gm Q15M PRN BUCCAL DECREASED GLUCOSE; Start 06/26/16 at 23 :30 Nitroglycerin (Nitroglycerin 2% Oint) 1 inch Q12 TD Last administered on 08:08; Admin Dose 1 INCH; Start 06/27/16 at 00:00 Ondansetron HCl (Zofran Inj) 4 mg Q6H PRN IV NAUSEA AND/OR VOMITING; Start at 10:40 Lorazepam (Ativan) 0.5 mg Q8H PRN IM ANXIETY Last administered on 07/02/16 01: 23; Admin Dose 0.5 MG; Start 07/02/16 at 00:30 COLBY MAZARIEGOS Jul 02, 2016 11:07
--- NOTE | 2016-07-02 13:28 | PN ---
Date/Time of Note Date/Time of Note DATE: 07/02/16 TIME: 13:27 Assessment/Plan VTE Prophylaxis VTE Prophylaxis Intervention: SCD's Lines/Catheters IV Catheter Type (from Nrsg): Saline Lock Urinary Cath still in place: No Assessment/Plan Assessment/Plan Acute decompensated diastolic congestive heart failure Atrial fibrillation, rate controlled Severe mitral stenosis Moderate to severe tricuspid valve regurgitation Pulmonary hypertension Chronic kidney disease Hypertension Diabetes Dyslipidemia History of [place] Scientific pacemaker Dementia -Respiratory status has improved. Heart rate remains well controlled. Would consider adjusting diuretics to p.o. regimen as per our nephrology colleagues. DC planning ok Subjective 24 Hr Interval Summary Free Text/Dictation the aptient stable overnight Exam/Review of Systems Vital Signs Vitals Vital Signs Date Time Temp Pulse Resp B/P Pulse Ox O2 Delivery O2 Flow Rate FiO2 07/02/16 12:23 97.6 69 18 133/62 97 07/02/16 12:23 3.0 32 07/02/16 05:43 Room Air Intake and Output 07/01/16 07/01/16 07/02/16 15:00 23:00 07:00 Intake Total 420 ml 200 ml Balance 420 ml 200 ml Results Result Diagram: 06/30/16 0617 07/02/16 0720 Results 24 hrs Laboratory Tests Test 07/01/16 18:07 07/01/16 21:16 07/02/16 02:53 07/02/16 07:20 Bedside Glucose 149 241 H 257 H Anion Gap 18 H Blood Urea Nitrogen 72 H Calcium Level 9.4 Carbon Dioxide Level 30 Chloride Level 101 Creatinine 1.94 H Glucose Level 196 Potassium Level 4.5 Sodium Level 144 Test 07/02/16 07:43 07/02/16 11:36 Bedside Glucose 186 290 H Medications Medications Current Medications Acetaminophen (Tylenol Tab) 500 mg Q4H PRN PO PAIN AND OR ELEVATED TEMP; Start 06/26/16 at 22:30 Atorvastatin Calcium (Lipitor) 40 mg QHS PO Last administered on 07/01/16 21: 12; Admin Dose 40 MG; Start 06/27/16 at 21:00 Bismuth Subsalicylate (Pepto-Bismol) 30 ml Q6H PRN PO stomach upset; Start at 22:30 Carvedilol (Coreg) 6.25 mg BID PO Last administered on 07/02/16 08:08; Admin Dose 6.25 MG; Start 06/27/16 at 09:00 Folic Acid (Folic Acid) 1 mg DAILY PO Last administered on 07/02/16 08:08; Admin Dose 1 MG; Start 06/27/16 at 09:00 Acetaminophen/ Hydrocodone Bitart ([place] (5/325)) 5 tab Q6H PRN PO PAIN; Start 06/26/16 at 22:30 Ibuprofen (Motrin) 500 mg Q4H PRN PO PAIN; Start 06/26/16 at 22:30 Insulin Glargine (Lantus) 8 unit QHS SC Last administered on 07/01/16 21:23; Admin Dose 8 UNIT; Start 06/27/16 at 21:00 Al Hydrox/Mg Hydrox/Simethicone (Mag-Al Plus) 30 ml Q4H PRN PO INDIGESTION, REFLUX, ACIDITY; Start 06/26/16 at 22:30 Magnesium Hydroxide (Milk Of Mag) 30 ml DAILY PRN PO CONSTIPATION; Start at 22:30 Pantoprazole (Protonix Tab) 40 mg DAILY@06 PO Last administered on 07/02/16 05 :45; Admin Dose 40 MG; Start 06/27/16 at 06:00 Zolpidem Tartrate (Ambien) 5 mg HS PRN PO INSOMNIA; Start 06/26/16 at 23:30 Aspirin (Aspirin) 325 mg DAILY PO Last administered on 07/02/16 08:08; Admin Dose 325 MG; Start 06/27/16 at 09:00 Diagnostic Test (Pha) (Accucheck) 1 ea 02 XX Last administered on 07/02/16 02: 58; Admin Dose 1 EA; Start 06/27/16 at 02:00 Hydralazine HCl (Apresoline) 25 mg Q8 PO Last administered on 07/02/16 05:45; Admin Dose 25 MG; Start 06/27/16 at 06:00 Miscellaneous Information 1 ea NOTE XX ; Start 06/26/16 at 23:30 Glucose (Glutose) 15 gm Q15M PRN PO DECREASED GLUCOSE; Start 06/26/16 at 23:30 Glucose (Glutose) 22.5 gm Q15M PRN PO DECREASED GLUCOSE; Start 06/26/16 at 23: 30 Dextrose (D50w Syringe) 25 ml Q15M PRN IV DECREASED GLUCOSE; Start 06/26/16 at 23:30 Dextrose (D50w Syringe) 50 ml Q15M PRN IV DECREASED GLUCOSE; Start 06/26/16 at 23:30 Glucagon (Glucagen) 1 mg Q15M PRN IM DECREASED GLUCOSE; Start 06/26/16 at 23:30 Glucose (Glutose) 15 gm Q15M PRN BUCCAL DECREASED GLUCOSE; Start 06/26/16 at 23 :30 Nitroglycerin (Nitroglycerin 2% Oint) 1 inch Q12 TD Last administered on 08:08; Admin Dose 1 INCH; Start 06/27/16 at 00:00 Ondansetron HCl (Zofran Inj) 4 mg Q6H PRN IV NAUSEA AND/OR VOMITING; Start at 10:40 Lorazepam (Ativan) 0.5 mg Q8H PRN IM ANXIETY Last administered on 07/02/16 01: 23; Admin Dose 0.5 MG; Start 07/02/16 at 00:30 RICHA JEFFERS MD Jul 02, 2016 13:27
--- NOTE | 2016-07-02 19:18 | PN ---
Date/Time of Note Date/Time of Note DATE: 07/02/16 TIME: 19:17 Assessment/Plan VTE Prophylaxis VTE Prophylaxis Intervention: other Lines/Catheters [facility] Type [facility] Saline Lock Urinary Cath still in place: No Assessment/Plan Chief Complaint/Hosp Course IMPRESSION: 1. The patient has congestive heart failure.BETTER 2. Rule out myocardial infarction.NEG 3. Hypertension. 4. Diabetes mellitus. 5. Anemia. 6. Chronic kidney disease. 7. Atherosclerotic heart disease. 8. Dyslipidemia. 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 AMBULATE Problems: Subjective 24 Hr Interval Summary Respiratory: shortness of breath (BETTER) Gastrointestinal: no complaints Genitourinary: no complaints Exam/Review of Systems Vital Signs Vitals Vital Signs Date Time Temp Pulse Resp B/P Pulse Ox O2 Delivery O2 Flow Rate FiO2 07/02/16 17:30 3.0 32 07/02/16 17:20 74 07/02/16 15:49 98.0 18 132/58 99 07/02/16 05:43 Room Air Intake and Output 07/01/16 07/01/16 07/02/16 15:00 23:00 07:00 Intake Total 420 ml 200 ml Balance 420 ml 200 ml Exam Respiratory: clear to auscultation Cardiovascular: regular rate and rhythm Gastrointestinal: soft Musculoskeletal: nl extremities to inspection Extremities: edema (+) Results Result Diagram: 06/30/16 0617 07/02/16 0720 Results 24 hrs Laboratory Tests Test 07/01/16 21:16 07/02/16 02:53 07/02/16 07:20 07/02/16 07:43 Bedside Glucose 241 H 257 H 186 Anion Gap 18 H Blood Urea Nitrogen 72 H Calcium Level 9.4 Carbon Dioxide Level 30 Chloride Level 101 Creatinine 1.94 H Glucose Level 196 Potassium Level 4.5 Sodium Level 144 Test 07/02/16 11:36 07/02/16 16:58 Bedside Glucose 290 H 190 Medications Medications Current Medications Acetaminophen (Tylenol Tab) 500 mg Q4H PRN PO PAIN AND OR ELEVATED TEMP; Start 06/26/16 at 22:30 Atorvastatin Calcium (Lipitor) 40 mg QHS PO Last administered on 07/01/16t 21: 12; Admin Dose 40 MG; Start 06/27/16 at 21:00 Bismuth Subsalicylate (Pepto-Bismol) 30 ml Q6H PRN PO stomach upset; Start at 22:30 Carvedilol (Coreg) 6.25 mg BID PO Last administered on 07/02/16 08:08; Admin Dose 6.25 MG; Start 06/27/16 at 09:00 Folic Acid (Folic Acid) 1 mg DAILY PO Last administered on 07/02/16 08:08; Admin Dose 1 MG; Start 06/27/16 at 09:00 Acetaminophen/ Hydrocodone Bitart ([place] (5/325)) 5 tab Q6H PRN PO PAIN; Start 06/26/16 at 22:30 Ibuprofen (Motrin) 500 mg Q4H PRN PO PAIN; Start 06/26/16 at 22:30 Insulin Glargine (Lantus) 8 unit QHS SC Last administered on 07/01/16 21:23; Admin Dose 8 UNIT; Start 06/27/16 at 21:00 Al Hydrox/Mg Hydrox/Simethicone (Mag-Al Plus) 30 ml Q4H PRN PO INDIGESTION, REFLUX, ACIDITY; Start 06/26/16 at 22:30 Magnesium Hydroxide (Milk Of Mag) 30 ml DAILY PRN PO CONSTIPATION; Start at 22:30 Pantoprazole (Protonix Tab) 40 mg DAILY@06 PO Last administered on 07/02/16 05 :45; Admin Dose 40 MG; Start 06/27/16 at 06:00 Zolpidem Tartrate (Ambien) 5 mg HS PRN PO INSOMNIA; Start 06/26/16 at 23:30 Aspirin (Aspirin) 325 mg DAILY PO Last administered on 07/02/16 08:08; Admin Dose 325 MG; Start 06/27/16 at 09:00 Diagnostic Test (Pha) (Accucheck) 1 ea 02 XX Last administered on 07/02/16 02: 58; Admin Dose 1 EA; Start 06/27/16 at 02:00 Hydralazine HCl (Apresoline) 25 mg Q8 PO Last administered on 07/02/16 14:23; Admin Dose 25 MG; Start 06/27/16 at 06:00 Miscellaneous Information 1 ea NOTE XX ; Start 06/26/16 at 23:30 Glucose (Glutose) 15 gm Q15M PRN PO DECREASED GLUCOSE; Start 06/26/16 at 23:30 Glucose (Glutose) 22.5 gm Q15M PRN PO DECREASED GLUCOSE; Start 06/26/16 at 23: 30 Dextrose (D50w Syringe) 25 ml Q15M PRN IV DECREASED GLUCOSE; Start 06/26/16 at 23:30 Dextrose (D50w Syringe) 50 ml Q15M PRN IV DECREASED GLUCOSE; Start 06/26/16 at 23:30 Glucagon (Glucagen) 1 mg Q15M PRN IM DECREASED GLUCOSE; Start 06/26/16 at 23:30 Glucose (Glutose) 15 gm Q15M PRN BUCCAL DECREASED GLUCOSE; Start 06/26/16 at 23 :30 Nitroglycerin (Nitroglycerin 2% Oint) 1 inch Q12 TD Last administered on 08:08; Admin Dose 1 INCH; Start 06/27/16 at 00:00 Ondansetron HCl (Zofran Inj) 4 mg Q6H PRN IV NAUSEA AND/OR VOMITING; Start at 10:40 Lorazepam (Ativan) 0.5 mg Q8H PRN IM ANXIETY Last administered on 07/02/16 01: 23; Admin Dose 0.5 MG; Start 07/02/16 at 00:30 ARIELA TIERNEY MD Jul 02, 2016 19:18
[2016-07-02] MEDS: ATORVASTATIN 40 MG TAB PO SCH (20:25)
[2016-07-02] MEDS: INSULIN GLARGINE [LANtus] 3 ML PEN SC SCH (20:34)
[2016-07-03] VITALS (11 sets, daily range): BP systolic 120–154; BP diastolic 61–72; PULSE 61–75; RESP 16–19
[2016-07-03] MEDS: ACCUCHECK XX SCH (01:15)
[2016-07-03] MEDS ORDERED: HALOPERIDOL 5 MG INJ IM PRN (02:30)
[2016-07-03] MEDS: INSULIN ASPART [NOVOLOG] 3 ML PEN SC SCH ×4 (07:55→22:02)
[2016-07-03] MEDS: ASPIRIN 325 MG TAB PO SCH (08:37)
[2016-07-03] MEDS: FOLIC ACID 1 MG TAB PO SCH (08:37)
[2016-07-03] MEDS: LEVOTHYROXINE 75 MCG TAB PO SCH (08:37)
[2016-07-03] MEDS: PANTOPRAZOLE (EC) 40 MG TAB PO SCH (08:38)
[2016-07-03] MEDS: FUROSEMIDE 40 MG TAB PO SCH ×3 (08:38→19:23)
[2016-07-03] MEDS: NITROGLYCERIN 2% 1 GM OINT PKT TD SCH ×2 (08:39→21:56)
[2016-07-03] MEDS: LORAZEPAM 2 MG INJ IM PRN (10:49)
--- NOTE | 2016-07-03 10:50 | CONS ---
Date/Time of Note Date/Time of Note DATE: 07/03/16 TIME: 10:48 Assessment/Plan Assessment/Plan Additional Assessment/Plan Assessment and recommendations; next 1. Patient admitted with CHF exacerbation and bilateral pleural effusions with marked clinical and radiological improvement. 2. Hypothyroidism. 3. Hypertension. Continue current treatment. I will sign off please reconsult if needed. Thanks for the consult. Consultation Date/Type/Reason Admit Date/Time Jun 26, 2016 at 18:58 Initial Consult Date 06/30/16 Type of Consultation: Pulmonary 24 HR Interval Summary Free Text/Dictation Patient condition is stable. Shortness of breath is continually improving. Denies any chest pain, wheezing. Any cough or sputum production. General examination; elderly lady, currently in no distress awake and alert. Exam/Review of Systems Vital Signs Vitals Vital Signs Date Time Temp Pulse Resp B/P Pulse Ox O2 Delivery O2 Flow Rate FiO2 07/03/16 08:12 66 07/03/16 08:09 97.9 18 154/72 99 07/03/16 06:28 Room Air 07/03/16 05:32 3.0 07/02/16 17:30 32 Intake and Output 07/02/16 07/02/16 07/03/16 15:00 23:00 07:00 Intake Total 700 ml 200 ml Balance 700 ml 200 ml Exam H EENT examination; supple neck, no JVD. No lymphadenopathy. Midline trachea. No thyromegaly. Pharynx is clear. Chest examination; diminished but clear breath sounds in lung bases bilaterally. Upper lobes are totally clear bilaterally. S1-S2 audible, no murmurs. Regular rhythm. Abdomen examination; soft, nontender, nondistended. No organomegaly. Bowel sounds audible. Extremity examination; no peripheral edema. 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 Results Result Diagram: 06/30/16 0617 07/02/16 0720 Results 24 hrs Laboratory Tests Test 07/02/16 11:36 07/02/16 16:58 07/02/16 20:24 07/03/16 06:34 Bedside Glucose 290 H 190 286 H 201 Test 07/03/16 07:28 Bedside Glucose 206 Medications Medications Current Medications Acetaminophen (Tylenol Tab) 500 mg Q4H PRN PO PAIN AND OR ELEVATED TEMP; Start 06/26/16 at 22:30 Atorvastatin Calcium (Lipitor) 40 mg QHS PO Last administered on 07/02/16 20: 25; Admin Dose 40 MG; Start 06/27/16 at 21:00 Bismuth Subsalicylate (Pepto-Bismol) 30 ml Q6H PRN PO stomach upset; Start at 22:30 Carvedilol (Coreg) 6.25 mg BID PO Last administered on 07/02/16 20:26; Admin Dose 6.25 MG; Start 06/27/16 at 09:00 Folic Acid (Folic Acid) 1 mg DAILY PO Last administered on 07/02/16 08:08; Admin Dose 1 MG; Start 06/27/16 at 09:00 Acetaminophen/ Hydrocodone Bitart ([place] (5/325)) 5 tab Q6H PRN PO PAIN; Start 06/26/16 at 22:30 Ibuprofen (Motrin) 500 mg Q4H PRN PO PAIN; Start 06/26/16 at 22:30 Insulin Glargine (Lantus) 8 unit QHS SC Last administered on 07/02/16 20:34; Admin Dose 8 UNIT; Start 06/27/16 at 21:00 Al Hydrox/Mg Hydrox/Simethicone (Mag-Al Plus) 30 ml Q4H PRN PO INDIGESTION, REFLUX, ACIDITY; Start 06/26/16 at 22:30 Magnesium Hydroxide (Milk Of Mag) 30 ml DAILY PRN PO CONSTIPATION; Start at 22:30 Pantoprazole (Protonix Tab) 40 mg DAILY@06 PO Last administered on 07/02/16 05 :45; Admin Dose 40 MG; Start 06/27/16 at 06:00 Zolpidem Tartrate (Ambien) 5 mg HS PRN PO INSOMNIA Last administered on 21:25; Admin Dose 5 MG; Start 06/26/16 at 23:30 Aspirin (Aspirin) 325 mg DAILY PO Last administered on 07/02/16 08:08; Admin Dose 325 MG; Start 06/27/16 at 09:00 Diagnostic Test (Pha) (Accucheck) 1 ea 02 XX Last administered on 07/03/16 01: 15; Admin Dose 1 EA; Start 06/27/16 at 02:00 Hydralazine HCl (Apresoline) 25 mg Q8 PO Last administered on 07/02/16 21:33; Admin Dose 25 MG; Start 06/27/16 at 06:00 Miscellaneous Information 1 ea NOTE XX ; Start 06/26/16 at 23:30 Glucose (Glutose) 15 gm Q15M PRN PO DECREASED GLUCOSE; Start 06/26/16 at 23:30 Glucose (Glutose) 22.5 gm Q15M PRN PO DECREASED GLUCOSE; Start 06/26/16 at 23: 30 Dextrose (D50w Syringe) 25 ml Q15M PRN IV DECREASED GLUCOSE; Start 06/26/16 at 23:30 Dextrose (D50w Syringe) 50 ml Q15M PRN IV DECREASED GLUCOSE; Start 06/26/16 at 23:30 Glucagon (Glucagen) 1 mg Q15M PRN IM DECREASED GLUCOSE; Start 06/26/16 at 23:30 Glucose (Glutose) 15 gm Q15M PRN BUCCAL DECREASED GLUCOSE; Start 06/26/16 at 23 :30 Nitroglycerin (Nitroglycerin 2% Oint) 1 inch Q12 TD Last administered on 08:39; Admin Dose 1 INCH; Start 06/27/16 at 00:00 Ondansetron HCl (Zofran Inj) 4 mg Q6H PRN IV NAUSEA AND/OR VOMITING; Start at 10:40 Lorazepam (Ativan) 0.5 mg Q8H PRN IM ANXIETY Last administered on 07/02/16 20: 30; Admin Dose 0.5 MG; Start 07/02/16 at 00:30 Haloperidol (Haldol) 2 mg Q8H PRN IM AGITATION/ANXIETY Last administered on 02:40; Admin Dose 2 MG; Start 07/03/16 at 02:30 COLBY MAZARIEGOS Jul 03, 2016 10:50
--- NOTE | 2016-07-03 12:11 | CONS ---
Date/Time of Note Date/Time of Note DATE: 07/03/16 TIME: 12:08 Assessment/Plan Assessment/Plan Additional Assessment/Plan Acute decompensated diastolic congestive heart failure Atrial fibrillation, rate controlled Severe mitral stenosis Moderate to severe tricuspid valve regurgitation Pulmonary hypertension Chronic kidney disease Hypertension Diabetes Dyslipidemia History of [place] [employer] pacemaker Dementia -Patient with increased confusion this morning and trying to get out of bed. Lung examination markedly improved. Patient currently on p.o. Lasix. No new cardiac orders at the current time. Consultation Date/Type/Reason Admit Date/Time Jun 26, 2016 at 18:58 Initial Consult Date 06/30/16 Type of Consultation: cv 24 HR Interval Summary Free Text/Dictation Patient seen and examined. Confused this morning and trying to get out of bed Exam/Review of Systems Vital Signs Vitals Vital Signs Date Time Temp Pulse Resp B/P Pulse Ox O2 Delivery O2 Flow Rate FiO2 07/03/16 11:43 97.5 75 18 124/68 94 07/03/16 06:28 Room Air 07/03/16 05:32 3.0 07/02/16 17:30 32 Intake and Output 07/02/16 07/02/16 07/03/16 15:00 23:00 07:00 Intake Total 700 ml 200 ml Balance 700 ml 200 ml Exam Awake, occasionally following commands, trying to get out of bed Head: normocephalic Neck: supple Respiratory: other (Coarse breath sounds bilaterally, no wheezing) Cardiovascular: irregular rhythm, other (S1-S2 heard), systolic murmur Gastrointestinal: bowel sounds, non-tender, soft Extremities: edema Results Result Diagram: 06/30/16 0617 07/02/16 0720 Results 24 hrs Laboratory Tests Test 07/02/16 16:58 07/02/16 20:24 07/03/16 06:34 07/03/16 07:28 Bedside Glucose 190 286 H 201 206 Test 07/03/16 11:08 Bedside Glucose 188 Medications Medications Current Medications Acetaminophen (Tylenol Tab) 500 mg Q4H PRN PO PAIN AND OR ELEVATED TEMP; Start 06/26/16 at 22:30 Atorvastatin Calcium (Lipitor) 40 mg QHS PO Last administered on 07/02/16t 20: 25; Admin Dose 40 MG; Start 06/27/16 at 21:00 Bismuth Subsalicylate (Pepto-Bismol) 30 ml Q6H PRN PO stomach upset; Start at 22:30 Carvedilol (Coreg) 6.25 mg BID PO Last administered on 07/02/16 20:26; Admin Dose 6.25 MG; Start 06/27/16 at 09:00 Folic Acid (Folic Acid) 1 mg DAILY PO Last administered on 07/02/16 08:08; Admin Dose 1 MG; Start 06/27/16 at 09:00 Acetaminophen/ Hydrocodone Bitart ([place] (5/325)) 5 tab Q6H PRN PO PAIN; Start 06/26/16 at 22:30 Ibuprofen (Motrin) 500 mg Q4H PRN PO PAIN; Start 06/26/16 at 22:30 Insulin Glargine (Lantus) 8 unit QHS SC Last administered on 07/02/16 20:34; Admin Dose 8 UNIT; Start 06/27/16 at 21:00 Al Hydrox/Mg Hydrox/Simethicone (Mag-Al Plus) 30 ml Q4H PRN PO INDIGESTION, REFLUX, ACIDITY; Start 06/26/16 at 22:30 Magnesium Hydroxide (Milk Of Mag) 30 ml DAILY PRN PO CONSTIPATION; Start at 22:30 Pantoprazole (Protonix Tab) 40 mg DAILY@06 PO Last administered on 07/02/16 05 :45; Admin Dose 40 MG; Start 06/27/16 at 06:00 Zolpidem Tartrate (Ambien) 5 mg HS PRN PO INSOMNIA Last administered on 21:25; Admin Dose 5 MG; Start 06/26/16 at 23:30 Aspirin (Aspirin) 325 mg DAILY PO Last administered on 07/02/16 08:08; Admin Dose 325 MG; Start 06/27/16 at 09:00 Diagnostic Test (Pha) (Accucheck) 1 ea 02 XX Last administered on 07/03/16 01: 15; Admin Dose 1 EA; Start 06/27/16 at 02:00 Hydralazine HCl (Apresoline) 25 mg Q8 PO Last administered on 07/02/16 21:33; Admin Dose 25 MG; Start 06/27/16 at 06:00 Miscellaneous Information 1 ea NOTE XX ; Start 06/26/16 at 23:30 Glucose (Glutose) 15 gm Q15M PRN PO DECREASED GLUCOSE; Start 06/26/16 at 23:30 Glucose (Glutose) 22.5 gm Q15M PRN PO DECREASED GLUCOSE; Start 06/26/16 at 23: 30 Dextrose (D50w Syringe) 25 ml Q15M PRN IV DECREASED GLUCOSE; Start 06/26/16 at 23:30 Dextrose (D50w Syringe) 50 ml Q15M PRN IV DECREASED GLUCOSE; Start 06/26/16 at 23:30 Glucagon (Glucagen) 1 mg Q15M PRN IM DECREASED GLUCOSE; Start 06/26/16 at 23:30 Glucose (Glutose) 15 gm Q15M PRN BUCCAL DECREASED GLUCOSE; Start 06/26/16 at 23 :30 Nitroglycerin (Nitroglycerin 2% Oint) 1 inch Q12 TD Last administered on 08:39; Admin Dose 1 INCH; Start 06/27/16 at 00:00 Ondansetron HCl (Zofran Inj) 4 mg Q6H PRN IV NAUSEA AND/OR VOMITING; Start at 10:40 Lorazepam (Ativan) 0.5 mg Q8H PRN IM ANXIETY Last administered on 07/03/16 10: 49; Admin Dose 0.5 MG; Start 07/02/16 at 00:30 Haloperidol (Haldol) 2 mg Q8H PRN IM AGITATION/ANXIETY Last administered on 02:40; Admin Dose 2 MG; Start 07/03/16 at 02:30 Ricky Murguia DO Jul 03, 2016 12:10
--- NOTE | 2016-07-03 17:34 | PDOCDIS ---
Discharge Instructions CONDITION Patient Condition: Stable HOME CARE INSTRUCTIONS: Special Diet: cardiac, 1800 ACTIVITY: Activity Restrictions: Slowly Increase Activity FOLLOW UP/APPOINTMENTS Appointments see dr tierney 2 wks see jud [address] nicole 2 wks ARIELA TIERNEY MD Jul 03, 2016 17:34
[2016-07-03] MEDS ORDERED: HYDR-3671 PO (17:38)
[2016-07-03] MEDS ORDERED: FURO-109 PO (17:38)
[2016-07-03] MEDS ORDERED: ASPI325T4 PO (17:38)
[2016-07-03] MEDS ORDERED: NIT1OI2 TD (17:38)
--- NOTE | 2016-07-03 19:51 | PN ---
Date/Time of Note Date/Time of Note DATE: 07/03/16 TIME: 19:50 Assessment/Plan VTE Prophylaxis VTE Prophylaxis Intervention: other Lines/Catheters IV Catheter Type (from [facility]): Peripheral IV Urinary Cath still in place: No Assessment/Plan Chief Complaint/Hosp Course IMPRESSION: 1. The patient has congestive heart failure.BETTER 2. Rule out myocardial infarction.NEG 3. Hypertension. 4. Diabetes mellitus. 5. Anemia. 6. Chronic kidney disease. 7. Atherosclerotic heart disease. 8. Dyslipidemia. 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 AMBULATE home Problems: Subjective 24 Hr Interval Summary Respiratory: no complaints Exam/Review of Systems Vital Signs Vitals Vital Signs Date Time Temp Pulse Resp B/P Pulse Ox O2 Delivery O2 Flow Rate FiO2 07/03/16 16:13 61 07/03/16 15:50 98.4 18 120/62 97 07/03/16 06:28 Room Air 07/03/16 05:32 3.0 07/02/16 17:30 32 Intake and Output 07/02/16 07/02/16 07/03/16 15:00 23:00 07:00 Intake Total 700 ml 200 ml Balance 700 ml 200 ml Exam Neck: supple Respiratory: clear to auscultation Cardiovascular: regular rate and rhythm Gastrointestinal: soft Results Result Diagram: 06/30/16 0617 07/02/16 0720 Results 24 hrs Laboratory Tests Test 07/02/16 20:24 07/03/16 06:34 07/03/16 07:28 07/03/16 11:08 Bedside Glucose 286 H 201 206 188 Test 07/03/16 17:21 Bedside Glucose 270 H Medications Medications Current Medications Acetaminophen (Tylenol Tab) 500 mg Q4H PRN PO PAIN AND OR ELEVATED TEMP; Start 06/26/16 at 22:30 Atorvastatin Calcium (Lipitor) 40 mg QHS PO Last administered on 07/02/16 20: 25; Admin Dose 40 MG; Start 06/27/16 at 21:00 Bismuth Subsalicylate (Pepto-Bismol) 30 ml Q6H PRN PO stomach upset; Start at 22:30 Carvedilol (Coreg) 6.25 mg BID PO Last administered on 07/02/16 20:26; Admin Dose 6.25 MG; Start 06/27/16 at 09:00 Folic Acid (Folic Acid) 1 mg DAILY PO Last administered on 07/02/16 08:08; Admin Dose 1 MG; Start 06/27/16 at 09:00 Acetaminophen/ Hydrocodone Bitart ([place] (5/325)) 5 tab Q6H PRN PO PAIN; Start 06/26/16 at 22:30 Ibuprofen (Motrin) 500 mg Q4H PRN PO PAIN; Start 06/26/16 at 22:30 Insulin Glargine (Lantus) 8 unit QHS SC Last administered on 07/02/16 20:34; Admin Dose 8 UNIT; Start 06/27/16 at 21:00 Al Hydrox/Mg Hydrox/Simethicone (Mag-Al Plus) 30 ml Q4H PRN PO INDIGESTION, REFLUX, ACIDITY; Start 06/26/16 at 22:30 Magnesium Hydroxide (Milk Of Mag) 30 ml DAILY PRN PO CONSTIPATION; Start at 22:30 Pantoprazole (Protonix Tab) 40 mg DAILY@06 PO Last administered on 07/02/16 05 :45; Admin Dose 40 MG; Start 06/27/16 at 06:00 Zolpidem Tartrate (Ambien) 5 mg HS PRN PO INSOMNIA Last administered on 21:25; Admin Dose 5 MG; Start 06/26/16 at 23:30 Aspirin (Aspirin) 325 mg DAILY PO Last administered on 07/02/16 08:08; Admin Dose 325 MG; Start 06/27/16 at 09:00 Diagnostic Test (Pha) (Accucheck) 1 ea 02 XX Last administered on 07/03/16 01: 15; Admin Dose 1 EA; Start 06/27/16 at 02:00 Hydralazine HCl (Apresoline) 25 mg Q8 PO Last administered on 07/02/16 21:33; Admin Dose 25 MG; Start 06/27/16 at 06:00 Miscellaneous Information 1 ea NOTE XX ; Start 06/26/16 at 23:30 Glucose (Glutose) 15 gm Q15M PRN PO DECREASED GLUCOSE; Start 06/26/16 at 23:30 Glucose (Glutose) 22.5 gm Q15M PRN PO DECREASED GLUCOSE; Start 06/26/16 at 23: 30 Dextrose (D50w Syringe) 25 ml Q15M PRN IV DECREASED GLUCOSE; Start 06/26/16 at 23:30 Dextrose (D50w Syringe) 50 ml Q15M PRN IV DECREASED GLUCOSE; Start 06/26/16 at 23:30 Glucagon (Glucagen) 1 mg Q15M PRN IM DECREASED GLUCOSE; Start 06/26/16 at 23:30 Glucose (Glutose) 15 gm Q15M PRN BUCCAL DECREASED GLUCOSE; Start 06/26/16 at 23 :30 Nitroglycerin (Nitroglycerin 2% Oint) 1 inch Q12 TD Last administered on 08:39; Admin Dose 1 INCH; Start 06/27/16 at 00:00 Ondansetron HCl (Zofran Inj) 4 mg Q6H PRN IV NAUSEA AND/OR VOMITING; Start at 10:40 Lorazepam (Ativan) 0.5 mg Q8H PRN IM ANXIETY Last administered on 07/03/16 10: 49; Admin Dose 0.5 MG; Start 07/02/16 at 00:30 Haloperidol (Haldol) 2 mg Q8H PRN IM AGITATION/ANXIETY Last administered on 02:40; Admin Dose 2 MG; Start 07/03/16 at 02:30 ARIELA TIERNEY MD Jul 03, 2016 19:51
[2016-07-03] MEDS: ATORVASTATIN 40 MG TAB PO SCH (20:20)
[2016-07-03] MEDS: INSULIN GLARGINE [LANtus] 3 ML PEN SC SCH (22:07)
[2016-07-03 22:22] LABS: AADO2 Arterial 123.5 mmHg (7.0-24.0); Arterial Base Excess -1.8 mmol/L (-3.0-3); Arterial COHb 0.3 % (0.0-3.0); Arterial Fraction of Oxyhgb 97.5 % (93.0-99.0); Arterial HCO3 22.1 mmol/L (22.0-26.0); Arterial MetHb 0.4 % (0.0-1.5); Arterial Total Hemglobin 11.7 g/dl (12.0-18.0); MODE VENT - AC
[2016-07-04] VITALS (15 sets, daily range): BP systolic 102–168; BP diastolic 56–84; PULSE 59–83; RESP 16–22
[2016-07-04] MEDS: ACCUCHECK XX SCH (02:30)
[2016-07-04] MEDS: LEVOTHYROXINE 75 MCG TAB PO SCH (06:43)
[2016-07-04] MEDS: PANTOPRAZOLE (EC) 40 MG TAB PO SCH (06:43)
[2016-07-04] MEDS: FUROSEMIDE 40 MG TAB PO SCH ×2 (06:43→17:30)
[2016-07-04] MEDS: INSULIN ASPART [NOVOLOG] 3 ML PEN SC SCH ×3 (07:55→17:27)
[2016-07-04] MEDS: NITROGLYCERIN 2% 1 GM OINT PKT TD SCH (09:11)
[2016-07-04] MEDS: FOLIC ACID 1 MG TAB PO SCH (09:11)
[2016-07-04] MEDS: ASPIRIN 325 MG TAB PO SCH (09:11)
--- NOTE | 2016-07-04 15:23 | CONS ---
Date/Time of Note Date/Time of Note DATE: 07/04/16 TIME: 15:20 Assessment/Plan Assessment/Plan Additional Assessment/Plan Acute decompensated diastolic congestive heart failure Atrial fibrillation, rate controlled Severe mitral stenosis Moderate to severe tricuspid valve regurgitation Pulmonary hypertension Chronic kidney disease Hypertension Diabetes Dyslipidemia History of [place] [employer] pacemaker Dementia -Heart rate trend remains stable, continue diuretics as blood pressure and renal function permits. Consultation Date/Type/Reason Admit Date/Time Jun 26, 2016 at 18:58 Initial Consult Date 06/30/16 Type of Consultation: cv 24 HR Interval Summary Free Text/Dictation Patient seen and examined. Mental status improve as per nurse, currently sleeping Exam/Review of Systems Vital Signs Vitals Vital Signs Date Time Temp Pulse Resp B/P Pulse Ox O2 Delivery O2 Flow Rate FiO2 07/04/16 13:08 142/63 07/04/16 12:09 60 07/04/16 11:17 98.1 20 99 07/04/16 04:06 Room Air 07/03/16 05:32 3.0 07/02/16 17:30 32 Exam Sleeping but arousable, no apparent distress Head: normocephalic Neck: supple Respiratory: other (Coarse breath sounds bilaterally, no wheezing) Cardiovascular: irregular rhythm, other (S1-S2 heard), systolic murmur Gastrointestinal: bowel sounds, non-tender, other (No guarding), soft Extremities: edema (Trace) Results Result Diagram: 06/30/16 0617 07/02/16 0720 Results 24 hrs Laboratory Tests Test 07/03/16 17:21 07/03/16 18:51 07/03/16 20:08 07/04/16 02:21 Bedside Glucose 270 H 228 H 66 L Arterial Blood HCO3 22.1 Arterial Blood Base Excess -1.8 Arterial Blood Oxygen Saturation 98.2 Ghulam Test N/A Arterial Blood Gas Puncture Site A-Line Arterial Blood Carboxyhemoglobin 0.3 Arterial Blood Date Drawn 07/03/2016 7:15:00 PM Arterial Blood Methemoglobin 0.4 Arterial Blood pCO2 (Temp correct) 34.4 L Arterial Blood pH (Temp corrected) 7.425 Arterial Blood pO2 (Temp corrected) 122.1 H Blood Gas A-a O2 Differential 123.5 H Blood Gas Actual Respiration Rate 19 Blood Gas Low PEEP Setting 5.0 Blood Gas Modality VENT - AC Blood Gas Notified Time 07/03/2016 7:35:00 PM Blood Gas Notified Whom MA Blood Gas Respiration Rate 16.0 Blood Gas Specimen Source Blood arterial Blood Gas Temperature 37.0 Blood Gas Tidal Volume 500.0 FiO2 40.0 Oxyhemoglobin Percent 97.5 Total Hemoglobin 11.7 L Test 07/04/16 03:24 07/04/16 03:49 07/04/16 07:40 07/04/16 11:11 Bedside Glucose 69 L 107 100 272 H Medications Medications Current Medications Acetaminophen (Tylenol Tab) 500 mg Q4H PRN PO PAIN AND OR ELEVATED TEMP; Start 06/26/16 at 22:30 Atorvastatin Calcium (Lipitor) 40 mg QHS PO Last administered on 07/02/16 20: 25; Admin Dose 40 MG; Start 06/27/16 at 21:00 Bismuth Subsalicylate (Pepto-Bismol) 30 ml Q6H PRN PO stomach upset; Start at 22:30 Carvedilol (Coreg) 6.25 mg BID PO Last administered on 07/04/16 09:11; Admin Dose 6.25 MG; Start 06/27/16 at 09:00 Folic Acid (Folic Acid) 1 mg DAILY PO Last administered on 07/04/16 09:11; Admin Dose 1 MG; Start 06/27/16 at 09:00 Acetaminophen/ Hydrocodone Bitart ([place] (5/325)) 5 tab Q6H PRN PO PAIN; Start 06/26/16 at 22:30 Ibuprofen (Motrin) 500 mg Q4H PRN PO PAIN; Start 06/26/16 at 22:30 Insulin Glargine (Lantus) 8 unit QHS SC Last administered on 07/03/16 22:07; Admin Dose 8 UNIT; Start 06/27/16 at 21:00 Al Hydrox/Mg Hydrox/Simethicone (Mag-Al Plus) 30 ml Q4H PRN PO INDIGESTION, REFLUX, ACIDITY; Start 06/26/16 at 22:30 Magnesium Hydroxide (Milk Of Mag) 30 ml DAILY PRN PO CONSTIPATION; Start at 22:30 Pantoprazole (Protonix Tab) 40 mg DAILY@06 PO Last administered on 07/04/16 06 :43; Admin Dose 40 MG; Start 06/27/16 at 06:00 Zolpidem Tartrate (Ambien) 5 mg HS PRN PO INSOMNIA Last administered on 21:25; Admin Dose 5 MG; Start 06/26/16 at 23:30 Aspirin (Aspirin) 325 mg DAILY PO Last administered on 07/04/16 09:11; Admin Dose 325 MG; Start 06/27/16 at 09:00 Diagnostic Test (Pha) (Accucheck) 1 ea 02 XX Last administered on 07/04/16 02: 30; Admin Dose 1 EA; Start 06/27/16 at 02:00 Hydralazine HCl (Apresoline) 25 mg Q8 PO Last administered on 07/04/16 13:08; Admin Dose 25 MG; Start 06/27/16 at 06:00 Miscellaneous Information 1 ea NOTE XX ; Start 06/26/16 at 23:30 Glucose (Glutose) 15 gm Q15M PRN PO DECREASED GLUCOSE; Start 06/26/16 at 23:30 Glucose (Glutose) 22.5 gm Q15M PRN PO DECREASED GLUCOSE; Start 06/26/16 at 23: 30 Dextrose (D50w Syringe) 25 ml Q15M PRN IV DECREASED GLUCOSE; Start 06/26/16 at 23:30 Dextrose (D50w Syringe) 50 ml Q15M PRN IV DECREASED GLUCOSE; Start 06/26/16 at 23:30 Glucagon (Glucagen) 1 mg Q15M PRN IM DECREASED GLUCOSE; Start 06/26/16 at 23:30 Glucose (Glutose) 15 gm Q15M PRN BUCCAL DECREASED GLUCOSE Last administered on 07/04/16 03:06; Admin Dose 15 GM; Start 06/26/16 at 23:30 Nitroglycerin (Nitroglycerin 2% Oint) 1 inch Q12 TD Last administered on 09:11; Admin Dose 1 INCH; Start 06/27/16 at 00:00 Ondansetron HCl (Zofran Inj) 4 mg Q6H PRN IV NAUSEA AND/OR VOMITING; Start at 10:40 Lorazepam (Ativan) 0.5 mg Q8H PRN IM ANXIETY Last administered on 07/03/16 10: 49; Admin Dose 0.5 MG; Start 07/02/16 at 00:30 Ricky Murguia 24, 2017 15:23
--- NOTE | 2016-07-04 20:02 | RADRPT ---
PROCEDURE: Retroperitoneal ultrasound. CLINICAL INDICATION: Renal insufficiency TECHNIQUE: Fairchild scale and color doppler ultrasound images of the retroperitoneum, kidneys, urinary bladder COMPARISON: No prior studies are available for comparison. FINDINGS: Right kidney 9.2 cm in length. Mild cortical thinning measuring approximately 9 mm is present. Left kidney is not identified by the layout operator. Minimally increased echogenicity of the right kidney is observed. No hydronephrosis. No renal calculi. No focal lesions. Bladder: No focal lesions. IMPRESSION: Left kidney not identified by the layout operator. Mild cortical thinning and mildly increased echogenicity of the right kidney suggestive of chronic m edical renal disease. No evidence of hydronephrosis or renal calculi. RPTAT: AADD .Kemal Osuna MD, Date Time Electronically viewed and signed by .Kemal Osuna MD, on 07/04/2016 20:01 .B/
--- NOTE | 2016-07-04 21:06 | PN ---
Date/Time of Note Date/Time of Note DATE: 07/04/16 TIME: 21:05 Assessment/Plan VTE Prophylaxis VTE Prophylaxis Intervention: other Lines/Catheters IV Catheter Type (from Nrs): Peripheral IV Urinary Cath still in place: No Assessment/Plan Chief Complaint/Hosp Course IMPRESSION: 1. The patient has congestive heart failure.BETTER 2. Rule out myocardial infarction.NEG 3. Hypertension. 4. Diabetes mellitus. 5. Anemia. 6. Chronic kidney disease. 7. Atherosclerotic heart disease. 8. Dyslipidemia. 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 AMBULATE home us seen Problems: Exam/Review of Systems Vital Signs Vitals Vital Signs Date Time Temp Pulse Resp B/P Pulse Ox O2 Delivery O2 Flow Rate FiO2 07/04/16 20:27 69 07/04/16 19:17 98.2 16 124/56 97 07/04/16 04:06 Room Air 07/03/16 05:32 3.0 07/02/16 17:30 32 Exam Neck: supple Respiratory: clear to auscultation Cardiovascular: regular rate and rhythm Gastrointestinal: soft Musculoskeletal: nl extremities to inspection Extremities: normal pulses Results Result Diagram: 06/30/16 0617 07/02/16 0720 Results 24 hrs Laboratory Tests Test 07/04/16 02:21 07/04/16 03:24 07/04/16 03:49 07/04/16 07:40 Bedside Glucose 66 L 69 L 107 100 Test 07/04/16 11:11 07/04/16 17:17 Bedside Glucose 272 H 156 Medications Medications Current Medications Acetaminophen (Tylenol Tab) 500 mg Q4H PRN PO PAIN AND OR ELEVATED TEMP; Start 06/26/16 at 22:30 Atorvastatin Calcium (Lipitor) 40 mg QHS PO Last administered on 07/02/16 20: 25; Admin Dose 40 MG; Start 06/27/16 at 21:00 Bismuth Subsalicylate (Pepto-Bismol) 30 ml Q6H PRN PO stomach upset; Start at 22:30 Carvedilol (Coreg) 6.25 mg BID PO Last administered on 07/04/16 09:11; Admin Dose 6.25 MG; Start 06/27/16 at 09:00 Folic Acid (Folic Acid) 1 mg DAILY PO Last administered on 07/04/16 09:11; Admin Dose 1 MG; Start 06/27/16 at 09:00 Acetaminophen/ Hydrocodone Bitart ([place] (5/325)) 5 tab Q6H PRN PO PAIN; Start 06/26/16 at 22:30 Ibuprofen (Motrin) 500 mg Q4H PRN PO PAIN; Start 06/26/16 at 22:30 Insulin Glargine (Lantus) 8 unit QHS SC Last administered on 07/03/16 22:07; Admin Dose 8 UNIT; Start 06/27/16 at 21:00 Al Hydrox/Mg Hydrox/Simethicone (Mag-Al Plus) 30 ml Q4H PRN PO INDIGESTION, REFLUX, ACIDITY; Start 06/26/16 at 22:30 Magnesium Hydroxide (Milk Of Mag) 30 ml DAILY PRN PO CONSTIPATION; Start at 22:30 Pantoprazole (Protonix Tab) 40 mg DAILY@06 PO Last administered on 07/04/16 06 :43; Admin Dose 40 MG; Start 06/27/16 at 06:00 Zolpidem Tartrate (Ambien) 5 mg HS PRN PO INSOMNIA Last administered on 21:25; Admin Dose 5 MG; Start 06/26/16 at 23:30 Aspirin (Aspirin) 325 mg DAILY PO Last administered on 07/04/16 09:11; Admin Dose 325 MG; Start 06/27/16 at 09:00 Diagnostic Test (Pha) (Accucheck) 1 ea 02 XX Last administered on 07/04/16 02: 30; Admin Dose 1 EA; Start 06/27/16 at 02:00 Hydralazine HCl (Apresoline) 25 mg Q8 PO Last administered on 07/04/16 13:08; Admin Dose 25 MG; Start 06/27/16 at 06:00 Miscellaneous Information 1 ea NOTE XX ; Start 06/26/16 at 23:30 Glucose (Glutose) 15 gm Q15M PRN PO DECREASED GLUCOSE; Start 06/26/16 at 23:30 Glucose (Glutose) 22.5 gm Q15M PRN PO DECREASED GLUCOSE; Start 06/26/16 at 23: 30 Dextrose (D50w Syringe) 25 ml Q15M PRN IV DECREASED GLUCOSE; Start 2/16/17 at 23:30 Dextrose (D50w Syringe) 50 ml Q15M PRN IV DECREASED GLUCOSE; Start 06/26/16 at 23:30 Glucagon (Glucagen) 1 mg Q15M PRN IM DECREASED GLUCOSE; Start 06/26/16 at 23:30 Glucose (Glutose) 15 gm Q15M PRN BUCCAL DECREASED GLUCOSE Last administered on 07/04/16 03:06; Admin Dose 15 GM; Start 06/26/16 at 23:30 Nitroglycerin (Nitroglycerin 2% Oint) 1 inch Q12 TD Last administered on 09:11; Admin Dose 1 INCH; Start 06/27/16 at 00:00 Ondansetron HCl (Zofran Inj) 4 mg Q6H PRN IV NAUSEA AND/OR VOMITING; Start at 10:40 Lorazepam (Ativan) 0.5 mg Q8H PRN IM ANXIETY Last administered on 07/03/16 10: 49; Admin Dose 0.5 MG; Start 07/02/16 at 00:30 ARIELA TIERNEY MD Jul 04, 2016 21:06
== END 2016-07-04 21:21 | disposition home or self-care (01) | DRG 291 ==
LOC: TEL 18:58
PROVIDERS: ADMIT Internal Medicine Nephrology; ATTEND Internal Medicine Nephrology
PROC: 0W9B3ZZ Drainage of Left Pleural Cavity, Percutaneous Approach (ICD-10-PCS; principal; 2016-06-30)
DX: I13.0 Hypertensive heart and chronic kidney disease with heart failure and stage 1 through stage 4 chronic kidney disease, or unspecified chronic kidney disease (principal); I50.33 Acute on chronic diastolic (congestive) heart failure; J90 Pleural effusion, not elsewhere classified; I27.2 Other secondary pulmonary hypertension; F03.90 Unspecified dementia, unspecified severity, without behavioral disturbance, psychotic disturbance, mood disturbance, and anxiety; N18.9 Chronic kidney disease, unspecified; I48.91 Unspecified atrial fibrillation; I05.2 Rheumatic mitral stenosis with insufficiency; I36.1 Nonrheumatic tricuspid (valve) insufficiency; E11.9 Type 2 diabetes mellitus without complications; E78.5 Hyperlipidemia, unspecified; Z95.0 Presence of cardiac pacemaker; E03.9 Hypothyroidism, unspecified
CPT/HCPCS: 36600; 71010; 71250; 76775; 76942; 80048; 80053; 80162; 82270; 82550; 82553; 82803; 82962; 83615; 83735; 83880; 84157; 84439; 84443; 84484; 85025; 85610; 85730; 87070; 87102; 87116; 88104; 88305; 89050; 93005; 93306; 94640; 94664; 97162; J1630; J1815; J1940; J2060

== ENCOUNTER 2016-07-13 06:24 | Emergency (ER) | payer BC ==
[~2016-07-13] VITALS: Ht 157.5 cm; Wt 63.0 kg
[~2016-07-13 06:24] MED LIST: ACET500C5 PO; ASPI325T4 PO; ASPI81TA3 PO; ATOR40TA68 PO; BISM262O PO; BISM262O23 PO; CARV6.25 PO; FOLI-49 PO; FURO-109 PO; FURO40TA4 PO; HYDR-3670 PO; HYDR-3671 PO; INSU100C SQ; LANT3I SC; LEVO75TA5 PO; LOSA25TA2 PO; MAG355OR15 PO; MAGN400O4 PO; NIT1OI2 TD; PANT40TA3 PO; SITA100T8 PO; TEMA15CA PO
[2016-07-13 06:28] VITALS: Ht 157.5 cm; Wt 63.0 kg
[2016-07-13] MEDS ORDERED: ONDANSETRON 4 MG INJ IV STA (06:44)
[2016-07-13] MEDS ORDERED: SOD CHLORIDE 0.9% 500 ML IV STA (06:44)
[2016-07-13] MEDS ORDERED: morphine 4 MG/ML VIAL IV STA (06:44)
[2016-07-13] MEDS ORDERED: VALACYCLOVIR 500 MG TAB PO ONE (07:00)
[2016-07-13 07:11] LABS: ADD SCAN DIFF NO
[2016-07-13] MEDS ORDERED: KETOROLAC 15 MG INJ IV STA (07:14)
[2016-07-13 07:33] LABS: BASOPHILS % 0.5 % (0.0-2.0); EOSINOPHILS # 0.8 10^3/ul (0.0-0.5); EOSINOPHILS % 10.2 % (0.0-7.0); HEMATOCRIT 28.8 % (37.0-47.0); LYMPHOCYTES # 0.9 10^3/ul (0.8-2.9); LYMPHOCYTES % 12.8 % (15.0-51.0); MEAN CORPUSCULAR HEMOGLOBIN 27.3 pg (29.0-33.0); MEAN CORPUSCULAR HGB CONC 31.3 g/dl (32.0-37.0); MEAN CORPUSCULAR VOLUME 87.3 fl (82.0-101.0); MEAN PLATELET VOLUME 11.4 fl (7.4-10.4); MONOCYTE # 0.7 10^3/ul (0.3-0.9); MONOCYTES % 9.3 % (0.0-11.0); NEUTROPHIL # 4.9 10^3/ul (1.6-7.5); NEUTROPHILS % 66.4 % (39.0-77.0); PLATELET COUNT 191 10^3/UL (140-415); RED CELL DISTRIBUTION WIDTH 16.4 % (11.5-14.5); WHITE BLOOD COUNT 7.4 10^3/ul (4.8-10.8)
[2016-07-13 07:56] LABS: ALBUMIN 3.9 g/dl (3.3-4.9); POTASSIUM 5.1 mmol/L (3.5-5.1)
[2016-07-13 07:58] LABS: BILIRUBIN,INDIRECT 0.4 mg/dl (0-1.1); BILIRUBIN,TOTAL 0.4 mg/dl (0.2-1.3); CREATININE 2.26 mg/dl (0.44-1.00)
[2016-07-13 07:59] LABS: ALBUMIN/GLOBULIN RATIO 1.25; CALCIUM 9.1 mg/dl (8.4-10.2)
[2016-07-13 08:01] LABS: ADD UMIC YES; URINE BILIRUBIN (Dip) NEGATIVE (NEGATIVE); URINE BLOOD (Dip) NEGATIVE (NEGATIVE); URINE COLOR LT. YELLOW (YELLOW); URINE GLUCOSE (Dip) NEGATIVE (NEGATIVE); URINE KETONES (Dip) NEGATIVE (NEGATIVE); URINE LEUKOCYTE ESTERASE (Dip) 1+ (NEGATIVE); URINE NITRITE (Dip) NEGATIVE (NEGATIVE); URINE TOTAL PROTEIN (Dip) NEGATIVE (NEGATIVE); URINE UROBILINOGEN (Dip) 0.2 E.U./dL (0.1-1.0)
--- NOTE | 2016-07-13 08:08 | RADRPT ---
PROCEDURE: XR Chest. CLINICAL INDICATION: Abdominal pain TECHNIQUE: AP view of the chest was performed. COMPARISON: Chest radiograph 07/30/1969 FINDINGS: Mild pulmonary vascular congestion with streaky opacities in the bilateral lung bases likely represe ntative of a atelectasis. The lung volumes are normal. The cardiac silhouette is enlarged. There are atherosclerotic calcifications of the aorta. There is a single lead left chest wall pacer devic e. The osseous structures are intact. IMPRESSION: Cardiomegaly. Atherosclerosis of the aorta. Mild pulmonary vascular congestion with bibasilar atelectasis, left greater than right RPTAT: QQ .Man Irvin MD, Date Time Electronically viewed and signed by .Man Irvin MD, MD on 07/13/2016 08:07 .[place]
[2016-07-13 08:10] LABS: TROPONIN-I 0.023 ng/ml (0.00-0.12)
[2016-07-13 08:10] LABS: BACTERIA,URINE FEW; URINE RBCS NONE SEEN /HPF (0)
[2016-07-13] MEDS ORDERED: CEFTRIAXONE 1 GM/50 ML (PMX) 50 ML IVPB ONE (08:30)
[2016-07-13] MEDS ORDERED: CEPH-443 PO (08:47)
[2016-07-13] MEDS ORDERED: ACYC800T57 PO (08:47)
[2016-07-13] MEDS ORDERED: IBUP-1542 PO (08:47)
[2016-07-13] MEDS ORDERED: OXYC-279 PO (08:47)
--- NOTE | 2016-07-13 08:50 | ERD ---
ER Documentation Chief Complaint Date/Time DATE: 07/13/16 TIME: 08:48 Chief Complaint RT SIDE ABD PAIN X 3 DAYS HPI 86-year-old woman brought in by son for 3 days of constant and increasing pain to the right upper back, right lateral costal margin, and right upper abdomen. She also complains of constipation. She has had no blood per rectum or melena, no fevers or chills, no chest pain or shortness of breath. ROS All systems reviewed and are negative except as per history of present illness. Medications Home Meds Active Scripts Cephalexin* (Keflex*) 500 Mg Capsule, 500 MG PO TID for 7 Days, CAP Prov:MERVAT GARCIA MD 07/13/16 Acyclovir* (Zovirax*) 800 Mg Tablet, 800 MG PO TID for 10 Days, TAB Prov:MERVAT GARCIA MD 07/13/16 Ibuprofen* (Ibuprofen*) 600 Mg Tablet, 600 MG PO Q8 for PAIN AND/OR INFLAMMATION , #30 TAB Prov:MERVAT GARCIA MD 07/13/16 Oxycodone HCl/Acetaminophen (Percocet 5-325 mg Tablet) 1 Each Tablet, 1 EACH PO TID for PAIN, #9 TAB Prov:MERVAT GARCIA MD 07/13/16 Furosemide* (Lasix*) 40 Mg Tablet, 40 MG PO DAILY for 28 Days, TAB Prov:ARIELA TIERNEY MD 07/03/16 Nitroglycerin* (Nitro-Bid* Oint (Pkt)) 1 Inch Oint, 1 INCH TD Q12 for 28 Days Prov:ARIELA TIERNEY MD 07/03/16 Hydralazine Hcl* (Hydralazine Hcl*) 25 Mg Tab, 25 MG PO Q8 for 28 Days, TAB Prov:ARIELA TIERNEY MD 07/03/16 Aspirin (Aspirin Lite-Coat) 325 Mg Tablet, 325 MG PO DAILY for 28 Days, #30 TAB Prov:ARIELA TIERNEY MD 07/03/16 Reported Medications Acetaminophen* (Tylophen*) 500 Mg Capsule, 500 MG PO Q4, TAB 06/26/16 Temazepam* (Temazepam*) 15 Mg Capsule, 15 MG PO HS Y for INSOMNIA, CAP 06/26/16 Bismuth Subsalicylate* (Pepto-Bismol*) 262 Mg/15 Ml Oral.susp, 30 ML PO Q30 - 60min. Y for stomach upset, ML 06/26/16 Pantoprazole* (Protonix*) 40 Mg Tablet.dr, 40 MG PO DAILY, TAB 06/26/16 Magnesium Hydroxide* (Milk Of Magnesia*) 400 Mg/5 Ml Oral.susp, 30 ML PO DAILY Y for CONSTIPATION, ML 06/26/16 Levothyroxine Sodium* (Levothyroxine Sodium*) 75 Mcg Tablet, 75 MCG PO BEFORE BREAKFAST, #30 TAB 06/26/16 Furosemide* (Furosemide*) 40 Mg Tablet, 40 MG PO DAILY, TAB 06/26/16 Insulin Glargine* (Lantus*) 100 Unit/Ml Soln, 8 UNIT SC QHS, #1 VIAL 06/26/16 Bismuth Subsalicylate* (Kaopectate*) 262 Mg/15 Ml Oral.susp, 30 ML PO Q6H Y for DIARRHEA, ML 06/26/16 Sitagliptin* (Januvia*) 100 Mg Tablet, 100 MG PO DAILY, #30 TAB 06/26/16 Hydralazine Hcl* (Hydralazine Hcl*) 10 Mg Tablet, 10 MG PO Q8, #90 TAB 06/26/16 Insulin Lispro (Humalog) 100 Unit/1 Ml Cartridge, 100 UNIT SQ AC MEALS 06/26/16 Folic Acid* (Folic Acid*) 1 Mg Tablet, 1 MG PO DAILY, TAB 06/26/16 Losartan Potassium* (Cozaar*) 25 Mg Tablet, 25 MG PO DAILY, #30 TAB 06/26/16 Carvedilol* (Coreg*) 6.25 Mg Tablet, 6.25 MG PO BID, #60 TAB 06/26/16 Atorvastatin* (Atorvastatin*) 40 Mg Tablet, 40 MG PO QHS, #30 TAB 06/26/16 Aspirin (Aspirin) 81 Mg Chew, 100 MG PO Q4, TAB.CHEW 06/26/16 Mag Hydrox/Al Hydrox/Simeth (Antacid Liquid) 355 Ml Oral.susp, 30 ML PO Q4, BOT 06/26/16 Allergies Allergies: Coded Allergies: No Known Allergy (Unverified , 06/26/16) PMhx/Soc Coronary artery disease, hypertension, pulmonary hypertension, congestive heart failure, diabetes mellitus, chronic kidney disease, pleural effusion, atrial fibrillation, recent thoracentesis with 0.8 L fluid removed from the left chest History of Surgery: No Anesthesia Reaction: No Hx Neurological Disorder: No Hx Respiratory Disorders: Yes Hx Cardiac Disorders: No Hx Psychiatric Problems: No Hx Miscellaneous Medical Probl: No Hx Alcohol Use: No Hx Substance Use: No Hx Tobacco Use: No Smoking Status: Never smoker FmHx Family History: No diabetes Physical Exam Vitals Vital Signs Date Time Temp Pulse Resp B/P Pulse Ox O2 Delivery O2 Flow Rate FiO2 07/13/16 09:05 98.3 78 20 144/78 98 Room Air 07/13/16 06:28 98.2 70 18 127/58 98 Physical Exam GENERAL: Well-developed, well-nourished, well-hydrated, in no apparent distress , looks nontoxic in appearance HEENT: Moist mucous membranes, pink conjunctiva, no cervical spine tenderness or step-off deformities, no goiter, no jaundice or icterus, extraocular movements intact without pain. No submandibular induration, and no pharyngeal erythema NEURO: Alert and oriented 3, cranial nerves II through XII intact bilaterally, pupils equal round reactive to light, no focal deficits or facial asymmetry, sensation intact distally Strength 5/5 in upper and lower extremities bilaterally CARDIAC: Regular rate and rhythm, no murmurs rubs or gallops LUNGS: Clear bilaterally no wheezing crackles or stridor ABDOMEN: Soft nontender, no guarding, no rigidity, no rebound, no psoas sign no obturator sign. Normoactive bowel sounds SKIN: Warm and dry to touch, positive erythematous tender papulovesicular rash from T5-T8 dermatome on the right side, no ulcers, no target lesions, no purulent discharge EXTREMITIES: No clubbing cyanosis or edema, calves are bilaterally symmetrical, no Homans sign, no popliteal cord sign. Distal pulses equal and bilateral PSYCH: Normal affect without agitation or irritability Result Diagram: 07/13/16 0707/13/16 07 Results 24 hrs Laboratory Tests Test 07/13/16 07:00 07/13/16 07:01 Urine Bacteria FEW Urine Bilirubin NEGATIVE Urine Clarity CLEAR Urine Color LT. YELLOW Urine Epithelial Cells FEW Urine Glucose NEGATIVE% Urine Hemoglobin NEGATIVE Urine Ketones NEGATIVE Urine Leukocyte Esterase 1+ Urine Microscopic RBC NONE SEEN/HPF Urine Microscopic WBC 10-25/HPF Urine Nitrite NEGATIVE Urine Specific [place] 1.010 Urine Total Protein NEGATIVE Urine Urobilinogen 0.2 E.U./dL Urine pH 5.5 Alanine Aminotransferase (ALT/SGPT) 22IU/L Albumin 3.9g/dl Albumin/Globulin Ratio 1.25 Alkaline Phosphatase 74IU/L Anion Gap 17 Aspartate Amino Transf (AST/SGOT) 51IU/L Basophils # 0.010^3/ul Basophils % 0.5% Blood Urea Nitrogen 58mg/dl Calcium Level 9.1mg/dl Carbon Dioxide Level 26mmol/L Chloride Level 101mmol/L Creatinine 2.26mg/dl Direct Bilirubin 0.00mg/dl Eosinophils # 0.810^3/ul Eosinophils % 10.2% Globulin 3.10g/dl Glucose Level 174mg/dl Hematocrit 28.8% Hemoglobin 9.0g/dl Indirect Bilirubin 0.4mg/dl Lipase 243U/L Lymphocytes # 0.910^3/ul Lymphocytes % 12.8% Mean Corpuscular Hemoglobin 27.3pg Mean Corpuscular Hemoglobin Concent 31.3g/dl Mean Corpuscular Volume 87.3fl Mean Platelet Volume 11.4fl Monocytes # 0.710^3/ul Monocytes % 9.3% Neutrophils # 4.910^3/ul Neutrophils % 66.4% Nucleated Red Blood Cells # 0.010^3/ul Nucleated Red Blood Cells % 0.0/100WBC Platelet Count 09941^3/UL Potassium Level 5.1mmol/L Red Blood Count 3.3010^6/ul Red Cell Distribution Width 16.4% Sodium Level 139mmol/L Total Bilirubin 0.4mg/dl Total Protein 7.0g/dl Troponin I 0.023ng/ml White Blood Count 7.410^3/ul Current Medications Medications (Trade) Dose Ordered Sig/Miko Route PRN Reason Start Time Stop Time Status Last Admin Dose Admin Sodium Chloride (NS) 500 ml @ 500 mls/hr Q1H STAT IV 07/13/16 06:44 07/13/16 07:43 DC 07/13/16 07:12 Morphine Sulfate (morphine) 4 mg ONCE STAT IV 07/13/16 06:44 07/13/16 07:15 DC Ondansetron HCl (Zofran Inj) 4 mg ONCE STAT IV 07/13/16 06:44 07/13/16 06:46 DC 3/5/17 07:10 Valacyclovir HCl (Valtrex) 500 mg ONCE ONCE PO 07/13/16 07:00 07/13/16 07:01 DC 07/13/16 07:24 Ketorolac Tromethamine 15 mg 15 mg ONCE STAT IV 07/13/16 07:14 07/13/16 07:16 DC 07/13/16 07:25 Ceftriaxone Sodium (Rocephin) 50 ml @ 100 mls/hr ONCE ONCE IVPB 07/13/16 08:30 07/13/16 08:59 DC 07/13/16 08:36 Procedures/MDM IV line was established patient was placed on coating machine helper rhythm strip revealed a narrow complex irregular rhythm at about 70 bpm. Patient was afebrile. EKG performed, read by me revealed an atrial fibrillation at 69 bpm, left axis deviation, narrow QRS complex, PVCs. One view chest x-ray performed, read by me there is left lower lung effusion, no pneumothorax, no acute infiltrates, no end of the diaphragm. I administered 500 cc normal saline intravenously, morphine 4 mg IV, Zofran 4 mg IV, Toradol 15 mg IV with good response. Also administered valacyclovir 500 mg p.o. Urine analysis was positive for infection I treated her here with ceftriaxone 1 g IV. CBC was unremarkable, electrolyte revealed dehydration with a BUN/creatinine of 58/2.3, liver function tests were normal, troponin was negative. I repeated the patient's abdominal examination and remains benign, although she does have complaints of constipation will be treated as an outpatient. Her belly remains soft without tenderness or rigidity. Patient's vital signs are normal and she remains afebrile. Differential diagnoses considered, included but not limited to acute coronary syndrome, pulmonary embolism, aortic dissection, abdominal aortic aneurysm, sepsis, stroke, meningitis, encephalitis, pneumonia, appendicitis, cholecystitis , bowel obstruction, pyelonephritis, nephrolithiasis, cystitis, as well as metabolic, hematologic, and electrolyte abnormalities. As well as abscess, cellulitis, fractures, and dislocations. Patient feels much better at this time, and vital signs are normal, symptoms have improved. I did give strict instructions to return to the ED if symptoms continue or worsen, patient will otherwise follow-up with primary care physician. Patient understood instructions and agreed to plan. Departure Diagnosis: Primary Impression: Shingles Herpes zoster complications: without complications Qualified Code: B02.9 - Herpes zoster without complication Additional Impressions: UTI (urinary tract infection) Urinary tract infection type: acute cystitis Hematuria presence: without hematuria Qualified Code: N30.00 - Acute cystitis without hematuria Dehydration Constipation Constipation type: unspecified constipation type Qualified Code: K59.00 - Constipation, unspecified constipation type Condition: Good Patient Instructions: Shingles (Herpes Zoster), Bladder Infection, Female ( Adult) MERVAT GARCIA MD Jul 13, 2016 08:50
[2016-07-13 09:05] VITALS: BP 144/78; PULSE 78; RESP 20; TEMP 98.3
== END 2016-07-13 09:06 | disposition home or self-care (01) ==
LOC: E/R 06:24
DX: B02.9 Zoster without complications (principal); N30.00 Acute cystitis without hematuria; E86.0 Dehydration; K59.00 Constipation, unspecified; I50.9 Heart failure, unspecified; E11.9 Type 2 diabetes mellitus without complications; N18.9 Chronic kidney disease, unspecified; I12.9 Hypertensive chronic kidney disease with stage 1 through stage 4 chronic kidney disease, or unspecified chronic kidney disease; I25.10 Atherosclerotic heart disease of native coronary artery without angina pectoris; Z79.4 Long term (current) use of insulin; Z79.82 Long term (current) use of aspirin; Z79.84 Long term (current) use of oral hypoglycemic drugs
CPT/HCPCS: 36415; 71010; 80053; 81001; 83690; 84484; 85025; 93005; 96374; 96375; J0696; J1885; J2270; J2405; J7040; Z7502; Z7610; 81003